=== PATIENT | female | born 1950 | race African-American/Black ===

== ENCOUNTER 2024-07-13 22:13 | Outpatient (BNV) | payer MEDICARE, BC, OTHER, SELFPAY | END 2024-07-15 16:00 | PROVIDERS: Admitting Provider Psychiatry & Neurology Psychiatry; Visit Provider Radiology Diagnostic Radiology | DX: F25.1 Schizoaffective disorder, depressive type (principal) | CPT/HCPCS: 70450 ==

== ENCOUNTER 2024-07-13 22:13 | Inpatient (IN) | payer MEDICARE, BC, OTHER, SELFPAY ==
--- NOTE | ~2024-07-13 | CT_ITS ---
EXAMINATION: CT HEAD WITHOUT CONTRAST CLINICAL INFORMATION: memory impairment COMPARISON: None available. TECHNIQUE: Contiguous axial imaging was performed from the skull base to vertex without intravenous administration of contrast. This CT examination was performed using dose optimization techniques as appropriate, variously including the following: *Automated exposure control *Adjustment of mA and/or kV according to patient size (this includes techniques or standardized protocols for targeted exams where dose is matched to indication/reason for exam; i.e. extremities or head) *Use of iterative reconstruction technique DLP: 655 mGy-cm FINDINGS: Bony calvarium is intact. Skull base is intact. No acute intracranial hemorrhage, mass effect, midline shift, hydrocephalus or herniation. Sellar/suprasellar region demonstrated no gross masses. Bilateral multifocal patchy and confluent deep periventricular white matter hypodensities involving centrum semiovale and larry radiata. Prominence of the extra-axial CSF spaces cerebral sulci and ventricles. Posterior cranial fossa contents demonstrated no acute intracranial hemorrhage or mass effect. Mucosal thickening without air-fluid levels in the paranasal sinuses. Tympanic cavities and mastoid air cells are aerated. Pneumatized petrous apices, congenital. CT/CT head/brain wo IV con IMPRESSION: Small vessel occlusive disease. Superimposed acute stroke/nonhemorrhagic ischemia cannot be excluded. No acute intracranial hemorrhage. Electronically signed by: Rajesh Cheney MD 07/18/2024 07:16 AM AMBER
[2024-07-13 22:51] VITALS: BMI 24.8
[2024-07-13 23:24] VITALS: BP 164/70; PULSE 62; RESP 16; TEMP 36.8; O2SAT 97
[2024-07-13 23:33] LABS: Glucose, Whole Blood 125 mg/dL (60-115)
[2024-07-13 23:40] VITALS: BP 164/70; PULSE 62
[2024-07-13] MEDS: Metoprolol Tartrate 100 MG TABLET PO (23:40)
[2024-07-13] MEDS: Pravastatin Sodium 20 MG TABLET PO (23:41)
--- NOTE | 2024-07-14 01:05 | PC.NURSE ---
Admission Note Gardenia Thibodeaux, 74 years old woman was presented to [facility] ED for auditory hallucination, hearing her children's voices. The patient lived by herself. The patient has a medical and psychiatric history of Hypertension, Hyperlipidemia, CAD, Diabetes (125 @ 2329), and Schizoaffetic Disorder, depressive type. Gardenia arrived at our unit in a stretcher at 2245 on 07/12/24, CV, with an admitting diagnosis of Sizhoaffective depressive type. The patient is alert and oriented x 4,? calm, pleasant, compliant with the admission process.? Denied SI/HI/vH, Denied depression and anxiety, continues to endorse AH but non commanding, ambulates with walker,? no visible skin issues observed,? Meds rec completed/compliant with meds/takes meds whole, reported her elimination intact. With occasional bladder incontinence. Lab work is unremarkable, EKG sinus rhythm with premature atrial complexes, Covid & influenza negative,? UA negative, treatment plan/safety tool/ release paper signed/filed, unit orientation completed, counterbrand searched, patient contracted for the safety, patient is being observed on 5 minutes safety check as ordered. The patient is full code.?
[2024-07-14] MEDS: Omeprazole 40 MG CAPSULE.DR PO (05:40)
[2024-07-14 07:00] VITALS: BMI 26.1
[2024-07-14 08:00] VITALS: BP 181/79; PULSE 60; RESP 18; TEMP 36; O2SAT 98
[2024-07-14 08:21] LABS: Estimated Average Glucose 108 mg/dL; Hemoglobin A1C 110.1456 umol/L; Hemoglobin A1c % 5.4 % (<6.0); Total Hemoglobin (HGBA1C) 3140.2107 umol/L
[2024-07-14 08:37] LABS: Cholesterol 143 mg/dL (<200); HDL Cholesterol 67 mg/dL (>40); LDL Cholesterol Calculated 67 mg/dL (<100); Triglycerides 47 mg/dL (<150)
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
[2024-07-14 08:53] LABS: Free T4 (Free Thyroxine) 1.05 ng/dL (0.71-1.85)
[2024-07-14 09:05] LABS: Folate 6.5 ng/mL (> or = 4.0); Vitamin B12 > 2000 pg/mL (200-900)
[2024-07-14] MEDS: Aspirin 81 MG TAB.CHEW PO (09:44)
[2024-07-14] MEDS: buPROPion HCl XL 300 MG TAB.ER.24H PO (09:44)
[2024-07-14] MEDS: Metoprolol Tartrate 100 MG TABLET PO ×2 (10:32→20:31)
[2024-07-14] MEDS: Isosorbide Mononitrate 60 MG TAB.ER.24H PO (10:32)
--- NOTE | 2024-07-14 11:29 | P.CONHOSP_ITS ---
History of Present Illness Data of Consult Service Date: 07/14/24 Primary Care Provider: Unknown Physician HPI Reason for consult: Admission H&P Pt is a 74-year-old female with a PMH significant for HTN, CAD, hx of TIA, GERD, and schizophrenia? who is admitted to [facility] for for increasing auditory and visual hallucinations. Pt reports has been seen and hearing the voices of her children. Pt has a long history of schizophrenia dating back to the age of 23. Medical consult for admission H&P. ?Pt is alert and oriented x4 and seen resting comfortably in bed. Pt complains of continuing to hear voices, but otherwise has no acute medical complaints. Denies fever, chills, nausea, vomiting, abdominal pain. No headache or acute vision changes. Denies chest pain/pressure, palpitations. No shortness a breath or difficulty breathing. Labs from [facility] reviewed, grossly unremarkable. Vitals indicate hypertension of 181/79. Review of Systems Review of Systems: Pt has no acute medical complaints at this time [facility] Medical History (Updated 07/14/24 @ 12:08 by MAYNOR Carney) Schizophrenia Hypertension Hyperlipidemia CAD (coronary artery disease) TIA (transient ischemic attack) Social History Household Members: None Housing: House Do you presently have visiting nurse or other home services: No Patient Tobacco Use Status: Never used Tobacco Smoked in Last 30 Days: No Patient Interested in Nicotine Replacement: No Patient Given Instructions on How to Stop Smoking: No Second Hand Smoke Exposure: No Use of substances other than those prescribed or required for medical reasons: No Currently Displaying Signs/Symptoms of Drug Intoxication Withdrawal: No Have you been hit, kicked, punched, or otherwise hurt by someone within the past year? If so, by whom?: No Do you feel safe in your current relationship?: No Current Relationship Is there a partner from a previous relationship who is making you feel unsafe now?: No Are you made to feel afraid or neglected: No Advance Directives: No Advance Directives Information Provided: No Do you have thoughts of harming others: None Do you have a plan to hurt others: No Plan Recently lost weight without trying: Yes How much weight loss: 14-23 pounds Eating poorly because of decreased appetite: Yes Nutrition screen score: 5 Nutrition Risks: No Nutritional Risk Patient : No : No Poor oral hygiene: No Meds Allergies Allergy/AdvReac Type Severity Reaction Status Date / Time thao Allergy Intermediate Nausea Verified 07/13/24 22:22 fluphenazine Allergy Intermediate Unknown Verified 07/13/24 22:24 losartan Allergy Intermediate Cough Verified 07/13/24 22:25 ondansetron [From Zofran] Allergy Intermediate Unknown Verified 07/13/24 22:26 pear Allergy Intermediate Nausea Verified 07/13/24 22:22 spironolactone Allergy Intermediate Nausea Verified 07/13/24 22:25 apple Allergy Mild Nausea Verified 07/13/24 22:21 haloperidol AdvReac Intermediate Involuntary Verified 07/13/24 22:24 Spasms Active Medications: Current Medications Acetaminophen (Acetaminophen 325 Mg Tablet) 650 mg PO Q6H PRN PRN Reason: Headache/Pain Mild Scale (1-3) Al Hydroxide/Mg Hydroxide (Magnesium Hydrox/Alum Hydrox 30 Ml Oral.Susp) 30 ml PO Q6H PRN PRN Reason: Heartburn/Nausea Aspirin (Aspirin 81 Mg Tab.Chew) 81 mg PO DAILY [facility] Last Admin: 07/14/24 09:44 Dose: 81 mg Bupropion HCl (Bupropion Hcl Xl 300 Mg Tab.Er.24h) 300 mg PO DAILY [facility] Last Admin: 07/14/24 09:44 Dose: 300 mg Hydroxyzine HCl (Hydroxyzine Hcl 25 Mg Tablet) 25 mg PO Q6H PRN PRN Reason: Anxiety Isosorbide Mononitrate (Isosorbide Mononitrate 60 Mg Tab.Er.24h) 60 mg PO DAILY [facility]; Protocol Last Admin: 07/14/24 10:32 Dose: 60 mg Magnesium Hydroxide (Milk Of Magnesia 30 Ml Oral.Susp) 30 ml PO DAILY PRN PRN Reason: Constipation Metoprolol Tartrate (Metoprolol Tartrate 100 Mg Tablet) 100 mg PO BID [facility]; Protocol Last Admin: 07/14/24 10:32 Dose: 100 mg Omeprazole (Omeprazole 40 Mg Capsule.Dr) 40 mg PO DAILY@0630 [facility] Last Admin: 07/14/24 05:40 Dose: 40 mg Pravastatin Sodium (Pravastatin Sodium 20 Mg Tablet) 20 mg PO BEDTIME [facility] Last Admin: 07/13/24 23:41 Dose: 20 mg Trazodone HCl (Trazodone Hcl 50 Mg Tablet) 50 mg PO BEDTIME MRX1 PRN PRN Reason: Insomnia Home Medications ?Medication ?Instructions ?Recorded ?Confirmed ?Last Taken ?Type aspirin 81 mg tablet,delayed 81 mg DAILY 07/13/24 07/13/24 Unknown History release bupropion HCl 300 mg 24 hr tablet, 300 mg PO DAILY 07/13/24 07/13/24 Unknown History extended release isosorbide mononitrate 60 mg 60 mg PO DAILY 07/13/24 07/13/24 Unknown History tablet,extended release 24 hr metoprolol tartrate 100 mg tablet 100 mg BID 07/13/24 07/13/24 Unknown History omeprazole 40 mg capsule,delayed 40 mg PO DAILY 07/13/24 07/13/24 Unknown History release pravastatin 20 mg tablet 20 mg PO BEDTIME 07/13/24 07/13/24 Unknown History Physical Exam Vital Signs and Narrative: Vital Signs: Last Vital Signs Temp 96.8 F 07/14/24 08:00 Pulse 60 07/14/24 08:00 Resp 18 07/14/24 08:00 BP 181/79 H 07/14/24 08:00 Pulse Ox 98 07/14/24 08:00 O2 Del Method Room Air 07/14/24 08:00 BMI result Body Mass Index 24.8 General: AOx3, no acute distress Resp: CTA bilaterally CVS: S1, S2, RRR GI: +BS, NT, no distention Skin: Warm, dry Neuro: Cranial nerves II-XII grossly intact bilaterally. Motor grossly intact bilaterally Extremities: No edema Psych: Appropriate affect Results Labs Labs: Laboratory Results - last 24 hr 07/13/24 07/14/24 23:29 07:17 POC Glucose 125 H Estimat Average Glucose 108 Hemoglobin A1c % 5.4 Magnesium 2.0 Triglycerides 47 Cholesterol 143 LDL Cholesterol, Calc 67 HDL Cholesterol 67 Vitamin B12 > 2000 H Folate 6.5 TSH 1.70 Free T4 1.05 Assessment and Plan (1) Medical clearance for psychiatric admission: Status: Acute Plan Pt is a 74-year-old female with a PMH significant for HTN, CAD, hx of TIA, GERD, and schizophrenia? who is admitted to [facility] for for increasing auditory and visual hallucinations. Pt reports has been seen and hearing the voices of her children. Pt has a long history of schizophrenia dating back to the age of 23. Medical consult for admission H&P. ? Mood disorder Plan as per Psychiatry HTN Poorly controlled patient's BP 181/79 this morning Continue metoprolol Will start on amlodipine 5 mg daily Monitor BP CAD/HLD Continue aspirin, statin, isosorbide mononitrate GERD Continue PPI Thank you for allowing us to participate in the care of this patient. Signing off at this time. Please re-consult if any acute complaints or issues arise.
[2024-07-14] MEDS: amLODIPine Besylate 5 MG TABLET PO (12:45)
[2024-07-14 12:51] VITALS: BP 116/54; PULSE 65; RESP 18; O2SAT 97
[2024-07-14] MEDS: Lurasidone HCl 20 MG TABLET PO (16:16)
[2024-07-14 17:49] LABS: Alanine Aminotransferase 32 U/L (0-31); Albumin Level 3.8 g/dL (3.5-5.0); Alkaline Phosphatase 100 U/L (39-117); Anion Gap 8 (12-20); Aspartate Amino Transferase 24 U/L (5-31); Bilirubin Total 0.3 mg/dL (0.0-1.0); Blood Urea Nitrogen 33 mg/dL (9-16); Calcium 9.3 mg/dL (8.4-10.2); Carbon Dioxide 30 mmol/L (22-29); Chloride 104 mmol/L (96-108); Creatinine Clr Calc Pharmacy 44.4; Estimated Glomerular Filt Rate 51; Glucose Random 147 mg/dL (60-115); Iron 43 mcg/dL (30-160); Percent Iron Saturation 16 % (15-50); Potassium 4.3 mmol/L (3.3-5.1); Sodium 138 mmol/L (135-145); Total Iron Binding Capacity 261 mcg/dL (228-428); Total Protein 6.3 g/dL (6.5-8.0); Unsaturated Iron Binding 218 ug/dL
[2024-07-14 20:00] VITALS: BP 172/71; PULSE 73; RESP 16; TEMP 36.3; O2SAT 99
[2024-07-14 20:31] VITALS: BP 172/71; PULSE 73
[2024-07-14] MEDS: traZODone HCL 50 MG TABLET PO (20:32)
[2024-07-14] MEDS: Pravastatin Sodium 20 MG TABLET PO (20:32)
[2024-07-15] MEDS: Omeprazole 40 MG CAPSULE.DR PO (06:40)
[2024-07-15 08:00] VITALS: BP 150/67; PULSE 63; RESP 18; TEMP 36.3; O2SAT 100
[2024-07-15] MEDS: Aspirin 81 MG TAB.CHEW PO (09:08)
[2024-07-15] MEDS: Isosorbide Mononitrate 60 MG TAB.ER.24H PO (09:08)
[2024-07-15] MEDS: amLODIPine Besylate 5 MG TABLET PO (09:08)
[2024-07-15] MEDS: Metoprolol Tartrate 100 MG TABLET PO ×2 (09:09→20:37)
[2024-07-15] MEDS: buPROPion HCl XL 150 MG TAB.ER.24H PO (09:09)
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
[2024-07-15] MEDS: Lurasidone HCl 20 MG TABLET PO (17:13)
[2024-07-15 20:00] VITALS: BP 186/77; PULSE 73; RESP 16; TEMP 37.1; O2SAT 100
[2024-07-15 20:37] VITALS: BP 182/77; PULSE 73
[2024-07-15] MEDS: Pravastatin Sodium 20 MG TABLET PO (20:37)
[2024-07-16] MEDS: Omeprazole 40 MG CAPSULE.DR PO (06:12)
[2024-07-16 08:00] VITALS: BP 165/72; PULSE 60; RESP 18; TEMP 36.2; O2SAT 98
[2024-07-16 08:36] VITALS: BP 165/72; PULSE 60
[2024-07-16] MEDS: Isosorbide Mononitrate 60 MG TAB.ER.24H PO (08:36)
[2024-07-16] MEDS: amLODIPine Besylate 5 MG TABLET PO ×2 (08:36→15:02)
[2024-07-16] MEDS: Metoprolol Tartrate 100 MG TABLET PO ×2 (08:36→20:26)
[2024-07-16] MEDS: Aspirin 81 MG TAB.CHEW PO (08:37)
[2024-07-16] MEDS: buPROPion HCl XL 150 MG TAB.ER.24H PO (08:37)
--- NOTE | 2024-07-16 13:43 | HO.PSYCHPN ---
Subjective Subjective Date of Service: 07/16/24 Reason For Visit: F25.1 Schizoaffective Disorder, Depressive Type Subjective Notes: Conditional Voluntary Interim History: Pt slept most of the night. Pt confused as to what she is doing here, although reports she likes it here. Her reports of visual or auditory hallucinations are vagued and at times contradictory. She is pleasant on approach. She asks if I have been able to reach her son, which I have not despite leaving with call back number. No behavioral concerns. pending cognitive/memory assessment. Review of Systems Review of Systems Pt denies any pain. No GI concerns.No SOB. No chest pain. Mental Status Exam Mental Status Exam Narrative: Appearance: wearing hospital gown, fair hygiene, in NAD Behavior: cooperative, interview limited by fact that she was somnolent and wanted to rest Psychomotor: no agitation or retardation noted Speech: clear, normal rate/rhythm/volume, spontaneous TP: linear TC: wanting to rest, open to tx. Mood: tired Affect: congruent SI: none HI: none VH/AH: intermittent auditory hallucinations of children, denies CAH Delusions: no overt delusional content noted or reported Insight/judgment: poor x 2. Memory/cog: alert, oriented to place, situation, month, year. Reports of increase forgetfulness. WIll complete MOCA Diagnostics Vital Signs (24Hr): Vital Signs - 24 hr 07/15/24 20:00 07/15/24 20:37 07/16/24 08:00 Temperature 98.8 F 97.2 F Pulse Rate 73 73 60 Respiratory Rate 16 18 Blood Pressure 186/77 H 182/77 H 165/72 H Pulse Oximetry 100 98 Oxygen Delivery Method Room Air Room Air 07/16/24 08:36 07/16/24 08:36 07/16/24 08:36 Temperature Pulse Rate 60 Respiratory Rate Blood Pressure 165/72 H 165/72 H 165/72 H Pulse Oximetry Oxygen Delivery Method BMI result Body Mass Index 26.1 Labs 07/14/24 17:29 Labs: Laboratory Results - last 48 hr 07/14/24 17:29 Sodium 138 Potassium 4.3 Chloride 104 Carbon Dioxide 30 H Anion Gap 8 L BUN 33 H Creatinine 1.06 Estim Creat Clear Calc 44.4 Estimated GFR 51 Random Glucose 147 H Calcium 9.3 Iron 43 TIBC 261 % Saturation 16 Unsat Iron Binding 218 Total Bilirubin 0.3 AST 24 ALT 32 H Alkaline Phosphatase 100 Total Protein 6.3 L Albumin 3.8 Medications Medications Current Medications Acetaminophen (Acetaminophen 325 Mg Tablet) 650 mg PO Q6H PRN PRN Reason: Headache/Pain Mild Scale (1-3) Al Hydroxide/Mg Hydroxide (Magnesium Hydrox/Alum Hydrox 30 Ml Oral.Susp) 30 ml PO Q6H PRN PRN Reason: Heartburn/Nausea Amlodipine Besylate (Amlodipine Besylate 5 Mg Tablet) 5 mg PO DAILY [facility]; Protocol Last Admin: 07/16/24 08:36 Dose: 5 mg Aspirin (Aspirin 81 Mg Tab.Chew) 81 mg PO DAILY [facility] Last Admin: 07/16/24 08:37 Dose: 81 mg Bupropion HCl (Bupropion Hcl Xl 150 Mg Tab.Er.24h) 150 mg PO DAILY [facility] Last Admin: 07/16/24 08:37 Dose: 150 mg Hydroxyzine HCl (Hydroxyzine Hcl 25 Mg Tablet) 25 mg PO Q6H PRN PRN Reason: Anxiety Isosorbide Mononitrate (Isosorbide Mononitrate 60 Mg Tab.Er.24h) 60 mg PO DAILY [facility]; Protocol Last Admin: 07/16/24 08:36 Dose: 60 mg Lurasidone HCl (Lurasidone Hcl 20 Mg Tablet) 20 mg PO DAILY@1700 [facility] Last Admin: 07/15/24 17:13 Dose: 20 mg Magnesium Hydroxide (Milk Of Magnesia 30 Ml Oral.Susp) 30 ml PO DAILY PRN PRN Reason: Constipation Metoprolol Tartrate (Metoprolol Tartrate 100 Mg Tablet) 100 mg PO BID [facility]; Protocol Last Admin: 07/16/24 08:36 Dose: 100 mg Omeprazole (Omeprazole 40 Mg Capsule.Dr) 40 mg PO DAILY@0630 [facility] Last Admin: 07/16/24 06:12 Dose: 40 mg Pravastatin Sodium (Pravastatin Sodium 20 Mg Tablet) 20 mg PO BEDTIME [facility] Last Admin: 07/15/24 20:37 Dose: 20 mg Trazodone HCl (Trazodone Hcl 50 Mg Tablet) 50 mg PO BEDTIME MRX1 PRN PRN Reason: Insomnia Last Admin: 07/14/24 20:32 Dose: 50 mg Allergies Allergies Allergy/AdvReac Type Severity Reaction Status Date / Time thao Allergy Intermediate Nausea Verified 07/13/24 22:22 fluphenazine Allergy Intermediate Unknown Verified 07/13/24 22:24 losartan Allergy Intermediate Cough Verified 07/13/24 22:25 ondansetron [From Zofran] Allergy Intermediate Unknown Verified 07/13/24 22:26 pear Allergy Intermediate Nausea Verified 07/13/24 22:22 spironolactone Allergy Intermediate Nausea Verified 07/13/24 22:25 apple Allergy Mild Nausea Verified 07/13/24 22:21 haloperidol AdvReac Intermediate Involuntary Verified 07/13/24 22:24 Spasms Assessment & Plan Assessment & Plan (1) Schizophrenia: Status: Acute Code(s): F20.9 - Schizophrenia, unspecified Plan Mrs. Thibodeaux is a 74 year-old woman with hx of schizophrenia. She also has hx of significant trauma. She was sect from her OP provider (unclear of psych or PCP) as pt reported AH of children, no SI/HI. In the ED concern in terms of her ability to care for herself, increase forgetfulness, pt was not aware what medications she is supposed to be taking and pharmacy confirmed she had not filled psychotropic medications since November 2023. Son had reported to ED concern in terms of ability to care for herself. This literary writer called son, Phani but unable to reach him. Will continue to attempt communication with son. Pending collateral information from OP provider as well. We discussed risks, benefits and alternative treatment options, will restart latuda 20mg po daily with dinner- will titrate as needed. Will complete memory/cognitive assessment. If head image not completed recently, will obtain head CT. Hospitalist did start amlodipine for elevated SBP. Will order iron studies, due to microcytic anemia. will do CMP as we do not have LFTs and BUN was elevated at 38. PLAN 07/16 continue tx. pending MOCA/ACL. Reason for continued inpatient stay Substantial Risk for: inability to function Time Spent With Patient Time: Total time managing care of this patient today ____ minutes.
[2024-07-16 15:02] VITALS: BP 144/71
[2024-07-16] MEDS: Lurasidone HCl 20 MG TABLET PO (16:48)
[2024-07-16 20:00] VITALS: BP 183/74; PULSE 74; RESP 18; TEMP 36.8; O2SAT 99
[2024-07-16 20:26] VITALS: BP 185/74; PULSE 74
[2024-07-16] MEDS: traZODone HCL 50 MG TABLET PO (20:27)
[2024-07-16] MEDS: Pravastatin Sodium 20 MG TABLET PO (20:27)
[2024-07-17] MEDS: Omeprazole 40 MG CAPSULE.DR PO (06:13)
[2024-07-17 08:16] VITALS: BP 151/72; PULSE 61; RESP 18; TEMP 36.6; O2SAT 98
[2024-07-17] MEDS: Aspirin 81 MG TAB.CHEW PO (09:59)
[2024-07-17] MEDS: buPROPion HCl XL 150 MG TAB.ER.24H PO (09:59)
[2024-07-17 10:00] VITALS: BP 148/65; BP 148/69; PULSE 85
[2024-07-17] MEDS: amLODIPine Besylate 10 MG TABLET PO (10:00)
[2024-07-17] MEDS: Metoprolol Tartrate 100 MG TABLET PO ×2 (10:00→20:36)
[2024-07-17] MEDS: Isosorbide Mononitrate 60 MG TAB.ER.24H PO (10:00)
--- NOTE | 2024-07-17 12:23 | HO.PSYCHPN ---
Subjective Subjective Date of Service: 07/17/24 Reason For Visit: F25.1 Schizoaffective Disorder, Depressive Type Subjective Notes: Conditional Voluntary Interim History: Pt slept most of the night. Pt confused as to what she is doing here, although reports she likes it here. Her reports of visual or auditory hallucinations are vagued and at times contradictory. She is pleasant on approach. She asks if I have been able to reach her son, which I have not despite leaving with call back number. No behavioral concerns. pending cognitive/memory assessment. Review of Systems Review of Systems Pt denies any pain. No GI concerns.No SOB. No chest pain. Mental Status Exam Mental Status Exam Narrative: Appearance: wearing hospital gown, fair hygiene, in NAD Behavior: cooperative, interview limited by fact that she was somnolent and wanted to rest Psychomotor: no agitation or retardation noted Speech: clear, normal rate/rhythm/volume, spontaneous TP: linear TC: wanting to rest, open to tx. Mood: tired Affect: congruent SI: none HI: none VH/AH: intermittent auditory hallucinations of children, denies CAH Delusions: no overt delusional content noted or reported Insight/judgment: poor x 2. Memory/cog: alert, oriented to place, situation, month, year. Reports of increase forgetfulness. WIll complete MOCA Diagnostics Vital Signs (24Hr): Vital Signs - 24 hr 07/16/24 15:02 07/16/24 20:00 07/16/24 20:26 Temperature 98.2 F Pulse Rate 74 74 Respiratory Rate 18 Blood Pressure 144/71 H 183/74 H 185/74 H Pulse Oximetry 99 Oxygen Delivery Method Room Air 07/17/24 08:16 07/17/24 10:00 07/17/24 10:00 Temperature 97.9 F Pulse Rate 61 85 Respiratory Rate 18 Blood Pressure 151/72 H 148/69 H 148/69 H Pulse Oximetry 98 Oxygen Delivery Method Room Air 07/17/24 10:00 Temperature Pulse Rate Respiratory Rate Blood Pressure 148/65 H Pulse Oximetry Oxygen Delivery Method BMI result Body Mass Index 26.1 Labs 07/14/24 17:29 Medications Medications Current Medications Acetaminophen (Acetaminophen 325 Mg Tablet) 650 mg PO Q6H PRN PRN Reason: Headache/Pain Mild Scale (1-3) Al Hydroxide/Mg Hydroxide (Magnesium Hydrox/Alum Hydrox 30 Ml Oral.Susp) 30 ml PO Q6H PRN PRN Reason: Heartburn/Nausea Amlodipine Besylate (Amlodipine Besylate 10 Mg Tablet) 10 mg PO DAILY [facility]; Protocol Last Admin: 07/17/24 10:00 Dose: 10 mg Aspirin (Aspirin 81 Mg Tab.Chew) 81 mg PO DAILY [facility] Last Admin: 07/17/24 09:59 Dose: 81 mg Bupropion HCl (Bupropion Hcl Xl 150 Mg Tab.Er.24h) 150 mg PO DAILY [facility] Last Admin: 07/17/24 09:59 Dose: 150 mg Hydroxyzine HCl (Hydroxyzine Hcl 25 Mg Tablet) 25 mg PO Q6H PRN PRN Reason: Anxiety Isosorbide Mononitrate (Isosorbide Mononitrate 60 Mg Tab.Er.24h) 60 mg PO DAILY [facility]; Protocol Last Admin: 07/17/24 10:00 Dose: 60 mg Lurasidone HCl (Lurasidone Hcl 40 Mg Tablet) 40 mg PO DAILY@1700 [facility] Magnesium Hydroxide (Milk Of Magnesia 30 Ml Oral.Susp) 30 ml PO DAILY PRN PRN Reason: Constipation Metoprolol Tartrate (Metoprolol Tartrate 100 Mg Tablet) 100 mg PO BID [facility]; Protocol Last Admin: 07/17/24 10:00 Dose: 100 mg Omeprazole (Omeprazole 40 Mg Capsule.Dr) 40 mg PO DAILY@0630 [facility] Last Admin: 07/17/24 06:13 Dose: 40 mg Pravastatin Sodium (Pravastatin Sodium 20 Mg Tablet) 20 mg PO BEDTIME [facility] Last Admin: 07/16/24 20:27 Dose: 20 mg Trazodone HCl (Trazodone Hcl 50 Mg Tablet) 50 mg PO BEDTIME MRX1 PRN PRN Reason: Insomnia Last Admin: 07/16/24 20:27 Dose: 50 mg Allergies Allergies Allergy/AdvReac Type Severity Reaction Status Date / Time thao Allergy Intermediate Nausea Verified 07/13/24 22:22 fluphenazine Allergy Intermediate Unknown Verified 07/13/24 22:24 losartan Allergy Intermediate Cough Verified 07/13/24 22:25 ondansetron [From Zofran] Allergy Intermediate Unknown Verified 07/13/24 22:26 pear Allergy Intermediate Nausea Verified 07/13/24 22:22 spironolactone Allergy Intermediate Nausea Verified 07/13/24 22:25 apple Allergy Mild Nausea Verified 07/13/24 22:21 haloperidol AdvReac Intermediate Involuntary Verified 07/13/24 22:24 Spasms Assessment & Plan Assessment & Plan (1) Schizophrenia: Status: Acute Code(s): F20.9 - Schizophrenia, unspecified Plan Mrs. Thibodeaux is a 74 year-old woman with hx of schizophrenia. She also has hx of significant trauma. She was sect from her OP provider (unclear of psych or PCP) as pt reported AH of children, no SI/HI. In the ED concern in terms of her ability to care for herself, increase forgetfulness, pt was not aware what medications she is supposed to be taking and pharmacy confirmed she had not filled psychotropic medications since November 2023. Son had reported to ED concern in terms of ability to care for herself. This greeting card writer called son, Phani but unable to reach him. Will continue to attempt communication with son. Pending collateral information from OP provider as well. We discussed risks, benefits and alternative treatment options, will restart latuda 20mg po daily with dinner- will titrate as needed. Will complete memory/cognitive assessment. If head image not completed recently, will obtain head CT. Hospitalist did start amlodipine for elevated SBP. Will order iron studies, due to microcytic anemia. will do CMP as we do not have LFTs and BUN was elevated at 38. PLAN 07/17 continue tx. pending MOCA/ACL. increase latuda to 40mg po dinner. Reason for continued inpatient stay Substantial Risk for: inability to function Time Spent With Patient Time: Total time managing care of this patient today ____ minutes.
[2024-07-17] MEDS: Lurasidone HCl 40 MG TABLET PO (17:08)
[2024-07-17 20:00] VITALS: BP 131/62; PULSE 76; RESP 18; TEMP 36.4; O2SAT 100
[2024-07-17] MEDS: traZODone HCL 50 MG TABLET PO (20:37)
[2024-07-17] MEDS: Pravastatin Sodium 20 MG TABLET PO (20:37)
[2024-07-18] MEDS: Omeprazole 40 MG CAPSULE.DR PO (05:54)
[2024-07-18 08:00] VITALS: BP 180/85; PULSE 70; RESP 18; TEMP 36.8; O2SAT 100
[2024-07-18] MEDS: amLODIPine Besylate 10 MG TABLET PO (08:06)
[2024-07-18] MEDS: Metoprolol Tartrate 100 MG TABLET PO ×2 (08:06→20:11)
[2024-07-18] MEDS: Isosorbide Mononitrate 60 MG TAB.ER.24H PO (08:06)
[2024-07-18] MEDS: buPROPion HCl XL 150 MG TAB.ER.24H PO (08:06)
[2024-07-18] MEDS: Aspirin 81 MG TAB.CHEW PO (08:06)
[2024-07-18] MEDS: Lurasidone HCl 40 MG TABLET PO (16:20)
--- NOTE | 2024-07-18 16:47 | HO.PSYCHPN ---
Subjective Subjective Date of Service: 07/18/24 Reason For Visit: F25.1 Schizoaffective Disorder, Depressive Type Interim History: Met with patient; discussed with team Patient pleasant and friendly on approach. She denies any SI and asks when she will be able to go home; accepts this will be discussed with her primary team provider. Discussed auditory and visual hallucinations. Patient says that sometimes she will hear a noise she thinks probably is happening such as a baby crying or banging sound; she says it can be hard to distinguish what is real verse imaginary. She reports that she will also see visual hallucinations including seeing her son, daughter or sibling in the room. Patient shared that she has a trick for distinguishing if it is real or not. What she does is she locks the door and if they appear in the room, she knows it is a hallucination since they otherwise could not get in there. Mental Status Exam Mental Status Exam Narrative: Appearance: wearing hospital gown, fair hygiene, in NAD Behavior: cooperative, friendly, calm Psychomotor: no agitation or retardation noted Speech: clear, normal rate/rhythm/volume, spontaneous TP: linear TC: discharge Mood: good Affect: congruent SI: none HI: none VH/AH: intermittent auditory hallucinations; intermittent VH of children, denies CAH Delusions: no overt delusional content noted or reported Insight/judgment: some impairment Memory/cog: alert and oriented moca: Diagnostics Vital Signs (24Hr): Vital Signs - 24 hr 07/17/24 20:00 07/18/24 08:00 Temperature 97.6 F 98.2 F Pulse Rate 76 70 Respiratory Rate 18 18 Blood Pressure 131/62 180/85 H Pulse Oximetry 100 100 Oxygen Delivery Method Room Air Room Air BMI result Body Mass Index 26.1 Labs 07/14/24 17:29 Imaging Radiology Impressions: ITS Impressions Head CT 07/15/24 16:00 IMPRESSION: Small vessel occlusive disease. Superimposed acute stroke/nonhemorrhagic ischemia cannot be excluded. No acute intracranial hemorrhage. Electronically signed by: Rajesh Cheney MD 07/18/2024 07:16 AM [facility] [place] Medications Medications Current Medications Acetaminophen (Acetaminophen 325 Mg Tablet) 650 mg PO Q6H PRN PRN Reason: Headache/Pain Mild Scale (1-3) Al Hydroxide/Mg Hydroxide (Magnesium Hydrox/Alum Hydrox 30 Ml Oral.Susp) 30 ml PO Q6H PRN PRN Reason: Heartburn/Nausea Amlodipine Besylate (Amlodipine Besylate 10 Mg Tablet) 10 mg PO DAILY [facility]; Protocol Last Admin: 07/18/24 08:06 Dose: 10 mg Aspirin (Aspirin 81 Mg Tab.Chew) 81 mg PO DAILY [facility] Last Admin: 07/18/24 08:06 Dose: 81 mg Bupropion HCl (Bupropion Hcl Xl 150 Mg Tab.Er.24h) 150 mg PO DAILY [facility] Last Admin: 07/18/24 08:06 Dose: 150 mg Hydroxyzine HCl (Hydroxyzine Hcl 25 Mg Tablet) 25 mg PO Q6H PRN PRN Reason: Anxiety Isosorbide Mononitrate (Isosorbide Mononitrate 60 Mg Tab.Er.24h) 60 mg PO DAILY [facility]; Protocol Last Admin: 07/18/24 08:06 Dose: 60 mg Lurasidone HCl (Lurasidone Hcl 40 Mg Tablet) 40 mg PO DAILY@1700 [facility] Last Admin: 07/18/24 16:20 Dose: 40 mg Magnesium Hydroxide (Milk Of Magnesia 30 Ml Oral.Susp) 30 ml PO DAILY PRN PRN Reason: Constipation Metoprolol Tartrate (Metoprolol Tartrate 100 Mg Tablet) 100 mg PO BID [facility]; Protocol Last Admin: 07/18/24 08:06 Dose: 100 mg Omeprazole (Omeprazole 40 Mg Capsule.Dr) 40 mg PO DAILY@0630 [facility] Last Admin: 07/18/24 05:54 Dose: 40 mg Pravastatin Sodium (Pravastatin Sodium 20 Mg Tablet) 20 mg PO BEDTIME [facility] Last Admin: 07/17/24 20:37 Dose: 20 mg Trazodone HCl (Trazodone Hcl 50 Mg Tablet) 50 mg PO BEDTIME MRX1 PRN PRN Reason: Insomnia Last Admin: 07/17/24 20:37 Dose: 50 mg Allergies Allergies Allergy/AdvReac Type Severity Reaction Status Date / Time thao Allergy Intermediate Nausea Verified 07/13/24 22:22 fluphenazine Allergy Intermediate Unknown Verified 07/13/24 22:24 losartan Allergy Intermediate Cough Verified 07/13/24 22:25 ondansetron [From Zofran] Allergy Intermediate Unknown Verified 07/13/24 22:26 pear Allergy Intermediate Nausea Verified 01/08/25 22:22 spironolactone Allergy Intermediate Nausea Verified 07/13/24 22:25 apple Allergy Mild Nausea Verified 07/13/24 22:21 haloperidol AdvReac Intermediate Involuntary Verified 07/13/24 22:24 Spasms Assessment & Plan Assessment & Plan (1) Schizophrenia: Status: Acute Code(s): F20.9 - Schizophrenia, unspecified Plan Mrs. Thibodeaux is a 74 year-old woman with hx of schizophrenia. She also has hx of significant trauma. She was sect from her OP provider (unclear of psych or PCP) as pt reported AH of children, no SI/HI. In the ED concern in terms of her ability to care for herself, increase forgetfulness, pt was not aware what medications she is supposed to be taking and pharmacy confirmed she had not filled psychotropic medications since November 2023. Son had reported to ED concern in terms of ability to care for herself. This credit underwriter called son, Phani but unable to reach him. Will continue to attempt communication with son. Pending collateral information from OP provider as well. We discussed risks, benefits and alternative treatment options, will restart latuda 20mg po daily with dinner- will titrate as needed. Will complete memory/cognitive assessment. If head image not completed recently, will obtain head CT. Hospitalist did start amlodipine for elevated SBP. Will order iron studies, due to microcytic anemia. will do CMP as we do not have LFTs and BUN was elevated at 38. PLAN 07/17 continue tx. pending MOCA/ACL. increase latuda to 40mg po dinner. 07/18 Patient pleasant and friendly on approach. She denies any SI and asks when she will be able to go home; accepts this will be discussed with her primary team provider. Discussed auditory and visual hallucinations. Patient says that sometimes she will hear a noise she thinks probably is happening such as a baby crying or banging sound; she says it can be hard to distinguish what is real verse imaginary. She reports that she will also see visual hallucinations including seeing her son, daughter or sibling in the room. Patient shared that she has a trick for distinguishing if it is real or not. What she does is she locks the door and if they appear in the room, she knows it is a hallucination since they otherwise could not get in there. -moca: -BP elevated; seems that Wellbutrin was recently started which could be contributory. Will hold Wellbutrin for now Patient educated on: diagnosis and medication risk/benefits Informed Consent: understands and further education needed Reason for continued inpatient stay Substantial Risk for: rapid decompensation Time Spent With Patient Time: Total time managing care of this patient today ____ minutes.
[2024-07-18 20:00] VITALS: BP 168/71; PULSE 77; RESP 18; TEMP 36.7; O2SAT 99
[2024-07-18] MEDS: traZODone HCL 50 MG TABLET PO (20:11)
[2024-07-18] MEDS: Pravastatin Sodium 20 MG TABLET PO (20:11)
[2024-07-19] MEDS: Omeprazole 40 MG CAPSULE.DR PO (05:29)
[2024-07-19 08:00] VITALS: BP 161/70; PULSE 60; RESP 18; TEMP 36.8; O2SAT 99
[2024-07-19 08:21] VITALS: BP 161/70; PULSE 60
[2024-07-19] MEDS: Aspirin 81 MG TAB.CHEW PO (08:21)
[2024-07-19] MEDS: Isosorbide Mononitrate 60 MG TAB.ER.24H PO (08:21)
[2024-07-19] MEDS: Metoprolol Tartrate 100 MG TABLET PO ×2 (08:21→20:42)
[2024-07-19 08:22] VITALS: BP 161/70
[2024-07-19] MEDS: amLODIPine Besylate 10 MG TABLET PO (08:22)
--- NOTE | 2024-07-19 09:39 | HO.PSYCHPN ---
Subjective Subjective Date of Service: 07/19/24 Reason For Visit: F25.1 Schizoaffective Disorder, Depressive Type Subjective Notes: Conditional Voluntary Interim History: Pt reports she is sleeping well. She goes to some groups and for meals but does stay in bed for long periods of times. She reports feeling tired, however, she is not on medications that are sedating. She is also sleeping through the night. No signs of acute illness. SBP continues to be high 170's despite medication adjustments including addition of amlodipine. Medication Compliance: Yes Side effects from medications: No Attending Groups: Intermittent Review of Systems Review of Systems Pt denies any pain. No GI concerns.No SOB. No chest pain. Mental Status Exam Mental Status Exam Narrative: Appearance: wearing hospital gown, fair hygiene, in NAD Behavior: cooperative, friendly, calm Psychomotor: no agitation or retardation noted Speech: clear, normal rate/rhythm/volume, spontaneous TP: linear TC: discharge Mood: good Affect: congruent SI: none HI: none VH/AH: intermittent auditory hallucinations; intermittent VH of children, denies CAH Delusions: no overt delusional content noted or reported Insight/judgment: some impairment Memory/cog: alert, oriented to place, month, situation is vague. ACL 4.2, moca: . Diagnostics Vital Signs (24Hr): Vital Signs - 24 hr 07/18/24 20:00 07/19/24 08:00 07/19/24 08:21 Temperature 98.1 F 98.2 F Pulse Rate 77 60 60 Respiratory Rate 18 18 Blood Pressure 168/71 H 161/70 H 161/70 H Pulse Oximetry 99 99 Oxygen Delivery Method Room Air Room Air 07/19/24 08:21 07/19/24 08:22 Temperature Pulse Rate Respiratory Rate Blood Pressure 161/70 H 161/70 H Pulse Oximetry Oxygen Delivery Method BMI result Body Mass Index 26.1 Labs 07/14/24 17:29 Imaging Radiology Impressions: ITS Impressions Head CT 07/15/24 16:00 IMPRESSION: Small vessel occlusive disease. Superimposed acute stroke/nonhemorrhagic ischemia cannot be excluded. No acute intracranial hemorrhage. Electronically signed by: Rajesh Cheney MD 07/18/2024 07:16 AM [facility] Medications Medications Current Medications Acetaminophen (Acetaminophen 325 Mg Tablet) 650 mg PO Q6H PRN PRN Reason: Headache/Pain Mild Scale (1-3) Al Hydroxide/Mg Hydroxide (Magnesium Hydrox/Alum Hydrox 30 Ml Oral.Susp) 30 ml PO Q6H PRN PRN Reason: Heartburn/Nausea Amlodipine Besylate (Amlodipine Besylate 10 Mg Tablet) 10 mg PO DAILY [facility]; Protocol Last Admin: 07/19/24 08:22 Dose: 10 mg Aspirin (Aspirin 81 Mg Tab.Chew) 81 mg PO DAILY [facility] Last Admin: 07/19/24 08:21 Dose: 81 mg Bupropion HCl (Bupropion Hcl Xl 150 Mg Tab.Er.24h) 150 mg PO DAILY [facility] Last Admin: 07/18/24 08:06 Dose: 150 mg Hydroxyzine HCl (Hydroxyzine Hcl 25 Mg Tablet) 25 mg PO Q6H PRN PRN Reason: Anxiety Isosorbide Mononitrate (Isosorbide Mononitrate 60 Mg Tab.Er.24h) 60 mg PO DAILY [facility]; Protocol Last Admin: 07/19/24 08:21 Dose: 60 mg Lurasidone HCl (Lurasidone Hcl 40 Mg Tablet) 40 mg PO DAILY@1700 [facility] Last Admin: 07/18/24 16:20 Dose: 40 mg Magnesium Hydroxide (Milk Of Magnesia 30 Ml Oral.Susp) 30 ml PO DAILY PRN PRN Reason: Constipation Metoprolol Tartrate (Metoprolol Tartrate 100 Mg Tablet) 100 mg PO BID [facility]; Protocol Last Admin: 07/19/24 08:21 Dose: 100 mg Omeprazole (Omeprazole 40 Mg Capsule.Dr) 40 mg PO DAILY@0630 [facility] Last Admin: 07/19/24 05:29 Dose: 40 mg Pravastatin Sodium (Pravastatin Sodium 20 Mg Tablet) 20 mg PO BEDTIME [facility] Last Admin: 07/18/24 20:11 Dose: 20 mg Trazodone HCl (Trazodone Hcl 50 Mg Tablet) 50 mg PO BEDTIME MRX1 PRN PRN Reason: Insomnia Last Admin: 07/18/24 20:11 Dose: 50 mg Allergies Allergies Allergy/AdvReac Type Severity Reaction Status Date / Time thao Allergy Intermediate Nausea Verified 07/13/24 22:22 fluphenazine Allergy Intermediate Unknown Verified 07/13/24 22:24 losartan Allergy Intermediate Cough Verified 07/13/24 22:25 ondansetron [From Zofran] Allergy Intermediate Unknown Verified 07/13/24 22:26 pear Allergy Intermediate Nausea Verified 07/13/24 22:22 spironolactone Allergy Intermediate Nausea Verified 07/13/24 22:25 apple Allergy Mild Nausea Verified 07/13/24 22:21 haloperidol AdvReac Intermediate Involuntary Verified 07/13/24 22:24 Spasms Assessment & Plan Assessment & Plan (1) Schizophrenia: Status: Acute Code(s): F20.9 - Schizophrenia, unspecified Plan Mrs. Thibodeaux is a 74 year-old woman with hx of schizophrenia. She also has hx of significant trauma. She was sect from her OP provider (unclear of psych or PCP) as pt reported AH of children, no SI/HI. In the ED concern in terms of her ability to care for herself, increase forgetfulness, pt was not aware what medications she is supposed to be taking and pharmacy confirmed she had not filled psychotropic medications since November 2023. Son had reported to ED concern in terms of ability to care for herself. This speech writer called son, Phani but unable to reach him. Will continue to attempt communication with son. Pending collateral information from OP provider as well. We discussed risks, benefits and alternative treatment options, will restart latuda 20mg po daily with dinner- will titrate as needed. Will complete memory/cognitive assessment. If head image not completed recently, will obtain head CT. Hospitalist did start amlodipine for elevated SBP. Will order iron studies, due to microcytic anemia. will do CMP as we do not have LFTs and BUN was elevated at 38. PLAN 07/17 continue tx. pending MOCA/ACL. increase latuda to 40mg po dinner. 07/19 continue tx. Family meeting with her son on 07/20/23. Reason for continued inpatient stay Substantial Risk for: inability to function Time Spent With Patient Time: Total time managing care of this patient today ____ minutes.
[2024-07-19] MEDS: Acetaminophen 325 MG TABLET 650 MG PO (11:32)
[2024-07-19] MEDS: Lurasidone HCl 40 MG TABLET PO (17:37)
[2024-07-19 20:00] VITALS: BP 158/70; PULSE 74; RESP 16; TEMP 36.9; O2SAT 99
[2024-07-19] MEDS: traZODone HCL 50 MG TABLET PO (20:42)
[2024-07-19] MEDS: Pravastatin Sodium 20 MG TABLET PO (20:42)
[2024-07-20] MEDS: Omeprazole 40 MG CAPSULE.DR PO (06:12)
[2024-07-20 08:00] VITALS: BP 161/76; PULSE 68; RESP 18; TEMP 36.6; O2SAT 100
[2024-07-20] MEDS: Aspirin 81 MG TAB.CHEW PO (08:46)
[2024-07-20] MEDS: Isosorbide Mononitrate 60 MG TAB.ER.24H PO (08:47)
[2024-07-20] MEDS: amLODIPine Besylate 10 MG TABLET PO (08:47)
[2024-07-20] MEDS: Metoprolol Tartrate 100 MG TABLET PO ×2 (08:47→20:37)
[2024-07-20] MEDS: Lurasidone HCl 40 MG TABLET PO (16:11)
[2024-07-20 20:00] VITALS: BP 141/66; PULSE 63; TEMP 36.4; O2SAT 100
[2024-07-20 20:37] VITALS: BP 141/66
[2024-07-20] MEDS: Pravastatin Sodium 20 MG TABLET PO (20:38)
[2024-07-20] MEDS: traZODone HCL 50 MG TABLET PO (20:38)
[2024-07-20] MEDS: Acetaminophen 325 MG TABLET 650 MG PO (20:59)
[2024-07-21] MEDS: Omeprazole 40 MG CAPSULE.DR PO (06:17)
[2024-07-21 08:39] VITALS: BP 170/77; PULSE 64; RESP 16; TEMP 36.5; O2SAT 96
[2024-07-21] MEDS: Isosorbide Mononitrate 60 MG TAB.ER.24H PO (08:45)
[2024-07-21] MEDS: amLODIPine Besylate 10 MG TABLET PO (08:46)
[2024-07-21] MEDS: Aspirin 81 MG TAB.CHEW PO (08:46)
[2024-07-21] MEDS: Metoprolol Tartrate 100 MG TABLET PO ×2 (08:47→20:35)
--- NOTE | 2024-07-21 10:00 | HO.PSYCHPN ---
Subjective Subjective Date of Service: 07/21/24 Reason For Visit: F25.1 Schizoaffective Disorder, Depressive Type Subjective Notes: Conditional Voluntary Interim History: Pt slept through the night. She reports bette voices at times. She is not clear as to what they sound like. She does seem somewhat suspicious of her son and helping her pay her bills. She denies SI/HI. She is forgetful. She is taking medications as prescriptions as prescribed. SBP 160's. Medication Compliance: Yes Diagnostics Vital Signs (24Hr): Vital Signs - 24 hr 07/20/24 20:00 07/20/24 20:37 07/21/24 08:39 Temperature 97.5 F 97.7 F Pulse Rate 63 64 Respiratory Rate 16 Blood Pressure 141/66 H 141/66 H 170/77 H Pulse Oximetry 100 96 Oxygen Delivery Method Room Air Room Air BMI result Body Mass Index 26.1 Labs 07/14/24 17:29 Imaging Radiology Impressions: ITS Impressions Head CT 07/15/24 16:00 IMPRESSION: Small vessel occlusive disease. Superimposed acute stroke/nonhemorrhagic ischemia cannot be excluded. No acute intracranial hemorrhage. Electronically signed by: Rajesh Cheney MD 07/18/2024 07:16 AM [facility] Medications Medications Current Medications Acetaminophen (Acetaminophen 325 Mg Tablet) 650 mg PO Q6H PRN PRN Reason: Headache/Pain Mild Scale (1-3) Last Admin: 07/20/24 20:59 Dose: 650 mg Al Hydroxide/Mg Hydroxide (Magnesium Hydrox/Alum Hydrox 30 Ml Oral.Susp) 30 ml PO Q6H PRN PRN Reason: Heartburn/Nausea Amlodipine Besylate (Amlodipine Besylate 10 Mg Tablet) 10 mg PO DAILY [facility]; Protocol Last Admin: 07/21/24 08:46 Dose: 10 mg Aspirin (Aspirin 81 Mg Tab.Chew) 81 mg PO DAILY [facility] Last Admin: 07/21/24 08:46 Dose: 81 mg Hydroxyzine HCl (Hydroxyzine Hcl 25 Mg Tablet) 25 mg PO Q6H PRN PRN Reason: Anxiety Isosorbide Mononitrate (Isosorbide Mononitrate 60 Mg Tab.Er.24h) 60 mg PO DAILY [facility]; Protocol Last Admin: 07/21/24 08:45 Dose: 60 mg Lurasidone HCl (Lurasidone Hcl 20 Mg Tablet) 60 mg PO DAILY@1700 [facility] Magnesium Hydroxide (Milk Of Magnesia 30 Ml Oral.Susp) 30 ml PO DAILY PRN PRN Reason: Constipation Metoprolol Tartrate (Metoprolol Tartrate 100 Mg Tablet) 100 mg PO BID [facility]; Protocol Last Admin: 07/21/24 08:47 Dose: 100 mg Omeprazole (Omeprazole 40 Mg Capsule.Dr) 40 mg PO DAILY@0630 [facility] Last Admin: 07/21/24 06:17 Dose: 40 mg Pravastatin Sodium (Pravastatin Sodium 20 Mg Tablet) 20 mg PO BEDTIME [facility] Last Admin: 07/20/24 20:38 Dose: 20 mg Trazodone HCl (Trazodone Hcl 50 Mg Tablet) 50 mg PO BEDTIME MRX1 PRN PRN Reason: Insomnia Last Admin: 07/20/24 20:38 Dose: 50 mg Allergies Allergies Allergy/AdvReac Type Severity Reaction Status Date / Time thao Allergy Intermediate Nausea Verified 07/13/24 22:22 fluphenazine Allergy Intermediate Unknown Verified 07/13/24 22:24 losartan Allergy Intermediate Cough Verified 07/13/24 22:25 ondansetron [From Zofran] Allergy Intermediate Unknown Verified 07/13/24 22:26 pear Allergy Intermediate Nausea Verified 07/13/24 22:22 spironolactone Allergy Intermediate Nausea Verified 07/13/24 22:25 apple Allergy Mild Nausea Verified 07/13/24 22:21 haloperidol AdvReac Intermediate Involuntary Verified 07/13/24 22:24 Spasms Assessment & Plan Assessment & Plan (1) Schizophrenia: Status: Acute Code(s): F20.9 - Schizophrenia, unspecified Plan Mrs. Thibodeaux is a 74 year-old woman with hx of schizophrenia. She also has hx of significant trauma. She was sect from her OP provider (unclear of psych or PCP) as pt reported AH of children, no SI/HI. In the ED concern in terms of her ability to care for herself, increase forgetfulness, pt was not aware what medications she is supposed to be taking and pharmacy confirmed she had not filled psychotropic medications since November 2023. Son had reported to ED concern in terms of ability to care for herself. This automobile and property underwriter called son, Phani but unable to reach him. Will continue to attempt communication with son. Pending collateral information from OP provider as well. We discussed risks, benefits and alternative treatment options, will restart latuda 20mg po daily with dinner- will titrate as needed. Will complete memory/cognitive assessment. If head image not completed recently, will obtain head CT. Hospitalist did start amlodipine for elevated SBP. Will order iron studies, due to microcytic anemia. will do CMP as we do not have LFTs and BUN was elevated at 38. PLAN 07/17 continue tx. pending MOCA/ACL. increase latuda to 40mg po dinner. 07/19 continue tx. Family meeting with her son on 07/20/23. 07/20 continue tx. 07/21 continue tx. may increase latuda. Reason for continued inpatient stay Substantial Risk for: inability to function Time Spent With Patient Time: Total time managing care of this patient today ____ minutes.
[2024-07-21 14:38] VITALS: BMI 26.8
[2024-07-21] MEDS: Lurasidone HCl 20 MG TABLET 60 MG PO (16:39)
[2024-07-21 20:00] VITALS: BP 154/69; PULSE 76; RESP 16; TEMP 36.9; O2SAT 100
[2024-07-21 20:35] VITALS: BP 154/69; PULSE 76
[2024-07-21] MEDS: Pravastatin Sodium 20 MG TABLET PO (20:35)
[2024-07-22] MEDS: Omeprazole 40 MG CAPSULE.DR PO (05:44)
[2024-07-22 08:15] VITALS: BP 150/70; PULSE 63; RESP 18; TEMP 36.6; O2SAT 98
[2024-07-22] MEDS: Isosorbide Mononitrate 60 MG TAB.ER.24H PO (08:49)
[2024-07-22] MEDS: Aspirin 81 MG TAB.CHEW PO (08:49)
[2024-07-22] MEDS: Metoprolol Tartrate 100 MG TABLET PO ×2 (08:49→21:04)
[2024-07-22] MEDS: amLODIPine Besylate 10 MG TABLET PO (08:49)
[2024-07-22] MEDS: Acetaminophen 325 MG TABLET 650 MG PO ×2 (08:49→21:05)
--- NOTE | 2024-07-22 09:51 | P.PNPSI_ITS ---
Subjective Subjective Date of Service: 07/22/24 Reason For Visit: F25.1 Schizoaffective Disorder, Depressive Type Subjective Notes: Conditional Voluntary Interim History: Pt slept through the night. She was up earlier and showered. Improved hygiene. She was confused as to when was the day she saw her son. She reports she has schizophrenia. She explains that sometimes she gets suspicious about others. She reports after she gave keys to her son and check book that she worried that she was going to lose everything. She denies SI/HI. She reports some voices, seem related to some paranoid towards son and him stealing. She does say that for the most part she trusts him and thinks he is trying to help. Review of Systems Review of Systems Pt denies any pain. No GI concerns.No SOB. No chest pain. Mental Status Exam Mental Status Exam Narrative: Appearance: wearing hospital gown, fair hygiene, in NAD Behavior: cooperative, friendly, calm Psychomotor: no agitation or retardation noted Speech: clear, normal rate/rhythm/volume, spontaneous TP: linear TC: discharge Mood: good Affect: congruent SI: none HI: none VH/AH: intermittent auditory hallucinations; intermittent VH of children, denies CAH Delusions: no overt delusional content noted or reported Insight/judgment: some impairment Memory/cog: alert, oriented to place, month, situation is vague. ACL 4.2, moca: . Diagnostics Vital Signs (24Hr): Vital Signs - 24 hr 07/21/24 20:00 07/21/24 20:35 07/22/24 08:15 Temperature 98.5 F 97.8 F Pulse Rate 76 76 63 Respiratory Rate 16 18 Blood Pressure 154/69 H 154/69 H 150/70 H Pulse Oximetry 100 98 Oxygen Delivery Method Room Air Room Air BMI result Body Mass Index 26.8 Labs 07/14/24 17:29 Imaging Radiology Impressions: ITS Impressions Head CT 07/15/24 16:00 IMPRESSION: Small vessel occlusive disease. Superimposed acute stroke/nonhemorrhagic ischemia cannot be excluded. No acute intracranial hemorrhage. Electronically signed by: Rajesh Cheney MD 07/18/2024 07:16 AM [facility] Medications Medications Current Medications Acetaminophen (Acetaminophen 325 Mg Tablet) 650 mg PO Q6H PRN PRN Reason: Headache/Pain Mild Scale (1-3) Last Admin: 07/22/24 08:49 Dose: 650 mg Al Hydroxide/Mg Hydroxide (Magnesium Hydrox/Alum Hydrox 30 Ml Oral.Susp) 30 ml PO Q6H PRN PRN Reason: Heartburn/Nausea Amlodipine Besylate (Amlodipine Besylate 10 Mg Tablet) 10 mg PO DAILY [facility]; Protocol Last Admin: 07/22/24 08:49 Dose: 10 mg Aspirin (Aspirin 81 Mg Tab.Chew) 81 mg PO DAILY [facility] Last Admin: 07/22/24 08:49 Dose: 81 mg Hydroxyzine HCl (Hydroxyzine Hcl 25 Mg Tablet) 25 mg PO Q6H PRN PRN Reason: Anxiety Isosorbide Mononitrate (Isosorbide Mononitrate 60 Mg Tab.Er.24h) 60 mg PO DAILY [facility]; Protocol Last Admin: 07/22/24 08:49 Dose: 60 mg Lurasidone HCl (Lurasidone Hcl 40 Mg Tablet) 120 mg PO DAILY@1700 [facility] Magnesium Hydroxide (Milk Of Magnesia 30 Ml Oral.Susp) 30 ml PO DAILY PRN PRN Reason: Constipation Metoprolol Tartrate (Metoprolol Tartrate 100 Mg Tablet) 100 mg PO BID [facility]; Protocol Last Admin: 07/22/24 08:49 Dose: 100 mg Omeprazole (Omeprazole 40 Mg Capsule.Dr) 40 mg PO DAILY@0630 [facility] Last Admin: 07/22/24 05:44 Dose: 40 mg Pravastatin Sodium (Pravastatin Sodium 20 Mg Tablet) 20 mg PO BEDTIME [facility] Last Admin: 07/21/24 20:35 Dose: 20 mg Trazodone HCl (Trazodone Hcl 50 Mg Tablet) 50 mg PO BEDTIME MRX1 PRN PRN Reason: Insomnia Last Admin: 07/20/24 20:38 Dose: 50 mg Allergies Allergies Allergy/AdvReac Type Severity Reaction Status Date / Time thao Allergy Intermediate Nausea Verified 07/13/24 22:22 fluphenazine Allergy Intermediate Unknown Verified 07/13/24 22:24 losartan Allergy Intermediate Cough Verified 07/13/24 22:25 ondansetron [From Zofran] Allergy Intermediate Unknown Verified 07/13/24 22:26 pear Allergy Intermediate Nausea Verified 07/13/24 22:22 spironolactone Allergy Intermediate Nausea Verified 07/13/24 22:25 apple Allergy Mild Nausea Verified 07/13/24 22:21 haloperidol AdvReac Intermediate Involuntary Verified 07/13/24 22:24 Spasms Assessment & Plan Assessment & Plan (1) Schizophrenia: Status: Acute Code(s): F20.9 - Schizophrenia, unspecified Plan Mrs. Thibodeaux is a 74 year-old woman with hx of schizophrenia. She also has hx of significant trauma. She was sect from her OP provider (unclear of psych or PCP) as pt reported AH of children, no SI/HI. In the ED concern in terms of her ability to care for herself, increase forgetfulness, pt was not aware what medications she is supposed to be taking and pharmacy confirmed she had not filled psychotropic medications since November 2023. Son had reported to ED concern in terms of ability to care for herself. This marketing writer called son, Phani but unable to reach him. Will continue to attempt communication with son. Pending collateral information from OP provider as well. We discussed risks, benefits and alternative treatment options, will restart latuda 20mg po daily with dinner- will titrate as needed. Will complete memory/cognitive assessment. If head image not completed recently, will obtain head CT. Hospitalist did start amlodipine for elevated SBP. Will order iron studies, due to microcytic anemia. will do CMP as we do not have LFTs and BUN was elevated at 38. PLAN 07/17 continue tx. pending MOCA/ACL. increase latuda to 40mg po dinner. 07/19 continue tx. Family meeting with her son on 07/20/23. 07/20 continue tx. 07/21 continue tx. may increase latuda. 07/22 increase latuda 120mg po with dinner. Reason for continued inpatient stay Substantial Risk for: inability to function Time Spent With Patient Time: Total time managing care of this patient today ____ minutes.
[2024-07-22] MEDS: Lurasidone HCl 40 MG TABLET 120 MG PO (16:48)
[2024-07-22 20:00] VITALS: BP 148/84; PULSE 77; RESP 16; TEMP 37.4; O2SAT 100
[2024-07-22 21:04] VITALS: BP 148/84; PULSE 77
[2024-07-22] MEDS: Pravastatin Sodium 20 MG TABLET PO (21:05)
[2024-07-23] MEDS: Omeprazole 40 MG CAPSULE.DR PO (06:01)
[2024-07-23 08:39] VITALS: BP 164/80; PULSE 62; RESP 17; TEMP 36.2; O2SAT 93
[2024-07-23] MEDS: Metoprolol Tartrate 100 MG TABLET PO ×2 (08:49→20:50)
[2024-07-23] MEDS: Isosorbide Mononitrate 60 MG TAB.ER.24H PO (08:49)
[2024-07-23] MEDS: Aspirin 81 MG TAB.CHEW PO (08:49)
[2024-07-23] MEDS: amLODIPine Besylate 10 MG TABLET PO (08:49)
--- NOTE | 2024-07-23 13:01 | HO.PSYCHPN ---
Subjective Subjective Date of Service: 07/23/24 Reason For Visit: F25.1 Schizoaffective Disorder, Depressive Type Subjective Notes: Conditional Voluntary Interim History: Patient was seen and discussed in rounds today. Records and plans were reviewed. She has been pleasant, cooperative and compliant with her treatment and medications. She did not sleep too well but did not want to change anything. No side effects and no other complaints. Review of Systems Review of Systems Sleep Yes all other systems are reviewed and are negative Mental Status Exam Mental Status Exam Narrative: In today's visit she is alert, pleasant and interactive. Normal speech. Good eye contact. Appropriate affect. No acute signs of psychosis. Denies any hallucinations but has reported having had some auditory hallucinations. No SI. No gross cognitive deficits. Judgment is intact Diagnostics Vital Signs (24Hr): Vital Signs - 24 hr 07/22/24 20:00 07/22/24 21:04 07/23/24 08:39 Temperature 99.4 F 97.2 F Pulse Rate 77 77 62 Respiratory Rate 16 17 Blood Pressure 148/84 H 148/84 H 164/80 H Pulse Oximetry 100 93 Oxygen Delivery Method Room Air Room Air BMI result Body Mass Index 26.8 Labs 07/14/24 17:29 Imaging Radiology Impressions: ITS Impressions Head CT 07/15/24 16:00 IMPRESSION: Small vessel occlusive disease. Superimposed acute stroke/nonhemorrhagic ischemia cannot be excluded. No acute intracranial hemorrhage. Electronically signed by: Rajesh Cheney MD 07/18/2024 07:16 AM [facility] Medications Medications Current Medications Acetaminophen (Acetaminophen 325 Mg Tablet) 650 mg PO Q6H PRN PRN Reason: Headache/Pain Mild Scale (1-3) Last Admin: 07/22/24 21:05 Dose: 650 mg Al Hydroxide/Mg Hydroxide (Magnesium Hydrox/Alum Hydrox 30 Ml Oral.Susp) 30 ml PO Q6H PRN PRN Reason: Heartburn/Nausea Amlodipine Besylate (Amlodipine Besylate 10 Mg Tablet) 10 mg PO DAILY [facility]; Protocol Last Admin: 07/23/24 08:49 Dose: 10 mg Aspirin (Aspirin 81 Mg Tab.Chew) 81 mg PO DAILY [facility] Last Admin: 07/23/24 08:49 Dose: 81 mg Hydroxyzine HCl (Hydroxyzine Hcl 25 Mg Tablet) 25 mg PO Q6H PRN PRN Reason: Anxiety Isosorbide Mononitrate (Isosorbide Mononitrate 60 Mg Tab.Er.24h) 60 mg PO DAILY [facility]; Protocol Last Admin: 07/23/24 08:49 Dose: 60 mg Lurasidone HCl (Lurasidone Hcl 40 Mg Tablet) 120 mg PO DAILY@1700 [facility] Last Admin: 07/22/24 16:48 Dose: 120 mg Magnesium Hydroxide (Milk Of Magnesia 30 Ml Oral.Susp) 30 ml PO DAILY PRN PRN Reason: Constipation Metoprolol Tartrate (Metoprolol Tartrate 100 Mg Tablet) 100 mg PO BID [facility]; Protocol Last Admin: 07/23/24 08:49 Dose: 100 mg Omeprazole (Omeprazole 40 Mg Capsule.Dr) 40 mg PO DAILY@0630 [facility] Last Admin: 07/23/24 06:01 Dose: 40 mg Pravastatin Sodium (Pravastatin Sodium 20 Mg Tablet) 20 mg PO BEDTIME [facility] Last Admin: 07/22/24 21:05 Dose: 20 mg Trazodone HCl (Trazodone Hcl 50 Mg Tablet) 50 mg PO BEDTIME MRX1 PRN PRN Reason: Insomnia Last Admin: 07/20/24 20:38 Dose: 50 mg Allergies Allergies Allergy/AdvReac Type Severity Reaction Status Date / Time thao Allergy Intermediate Nausea Verified 07/13/24 22:22 fluphenazine Allergy Intermediate Unknown Verified 07/13/24 22:24 losartan Allergy Intermediate Cough Verified 07/13/24 22:25 ondansetron [From Zofran] Allergy Intermediate Unknown Verified 07/13/24 22:26 pear Allergy Intermediate Nausea Verified 07/13/24 22:22 spironolactone Allergy Intermediate Nausea Verified 07/13/24 22:25 apple Allergy Mild Nausea Verified 07/13/24 22:21 haloperidol AdvReac Intermediate Involuntary Verified 07/13/24 22:24 Spasms Assessment & Plan Assessment & Plan (1) Schizophrenia: Status: Acute Code(s): F20.9 - Schizophrenia, unspecified Plan Mrs. Thibodeaux is a 74 year-old woman with hx of schizophrenia. She also has hx of significant trauma. She was sect from her OP provider (unclear of psych or PCP) as pt reported AH of children, no SI/HI. In the ED concern in terms of her ability to care for herself, increase forgetfulness, pt was not aware what medications she is supposed to be taking and pharmacy confirmed she had not filled psychotropic medications since November 2023. Son had reported to ED concern in terms of ability to care for herself. This copywriter called son, Phani but unable to reach him. Will continue to attempt communication with son. Pending collateral information from OP provider as well. We discussed risks, benefits and alternative treatment options, will restart latuda 20mg po daily with dinner- will titrate as needed. Will complete memory/cognitive assessment. If head image not completed recently, will obtain head CT. Hospitalist did start amlodipine for elevated SBP. Will order iron studies, due to microcytic anemia. will do CMP as we do not have LFTs and BUN was elevated at 38. PLAN 07/17 continue tx. pending MOCA/ACL. increase latuda to 40mg po dinner. 07/19 continue tx. Family meeting with her son on 07/20/23. 07/20 continue tx. 07/21 continue tx. may increase latuda. 07/22 increase latuda 120mg po with dinner. 07/23/2024: Continue current regimen and plans Reason for continued inpatient stay Substantial Risk for: med/psych decompensation Time Spent With Patient Time: Total time managing care of this patient today ____ minutes.
[2024-07-23] MEDS: Lurasidone HCl 40 MG TABLET 120 MG PO (16:44)
[2024-07-23 20:00] VITALS: BP 158/70; PULSE 73; RESP 16; TEMP 36.8; O2SAT 98
[2024-07-23 20:50] VITALS: BP 158/70; PULSE 73
[2024-07-23] MEDS: Pravastatin Sodium 20 MG TABLET PO (20:50)
[2024-07-24] MEDS: Omeprazole 40 MG CAPSULE.DR PO (06:02)
[2024-07-24 07:55] VITALS: BP 162/70; PULSE 68; RESP 18; TEMP 36.7; O2SAT 97
[2024-07-24] MEDS: Aspirin 81 MG TAB.CHEW PO (08:21)
[2024-07-24] MEDS: Isosorbide Mononitrate 60 MG TAB.ER.24H PO (08:21)
[2024-07-24] MEDS: amLODIPine Besylate 10 MG TABLET PO (08:21)
[2024-07-24] MEDS: Metoprolol Tartrate 100 MG TABLET PO ×2 (08:21→20:21)
--- NOTE | 2024-07-24 12:08 | P.PNPSI_ITS ---
Subjective Subjective Date of Service: 07/24/24 Reason For Visit: F25.1 Schizoaffective Disorder, Depressive Type Subjective Notes: Conditional Voluntary Interim History: Patient was seen and discussed in rounds today. Records and plans were reviewed. She has been pleasant, cooperative and compliant with her treatment and medications. Nurses report no behavioral issues. No changes were made Review of Systems Review of Systems Yes all other systems are reviewed and are negative Mental Status Exam Mental Status Exam Narrative: In today's visit she is alert, pleasant and interactive. Normal speech. Good eye contact. Appropriate affect. No acute signs of psychosis. Denies any hallucinations but has reported having had some auditory hallucinations. No SI. No gross cognitive deficits. Judgment is intact Diagnostics Vital Signs (24Hr): Vital Signs - 24 hr 07/23/24 20:00 07/23/24 20:50 07/24/24 07:55 Temperature 98.2 F 98.0 F Pulse Rate 73 73 68 Respiratory Rate 16 18 Blood Pressure 158/70 H 158/70 H 162/70 H Pulse Oximetry 98 97 Oxygen Delivery Method Room Air Room Air BMI result Body Mass Index 26.8 Labs 07/14/24 17:29 Imaging Radiology Impressions: ITS Impressions Head CT 07/15/24 16:00 IMPRESSION: Small vessel occlusive disease. Superimposed acute stroke/nonhemorrhagic ischemia cannot be excluded. No acute intracranial hemorrhage. Electronically signed by: Rajesh Cheney MD 07/18/2024 07:16 AM [facility] [place] Medications Medications Current Medications Acetaminophen (Acetaminophen 325 Mg Tablet) 650 mg PO Q6H PRN PRN Reason: Headache/Pain Mild Scale (1-3) Last Admin: 07/22/24 21:05 Dose: 650 mg Al Hydroxide/Mg Hydroxide (Magnesium Hydrox/Alum Hydrox 30 Ml Oral.Susp) 30 ml PO Q6H PRN PRN Reason: Heartburn/Nausea Amlodipine Besylate (Amlodipine Besylate 10 Mg Tablet) 10 mg PO DAILY [facility]; Protocol Last Admin: 07/24/24 08:21 Dose: 10 mg Aspirin (Aspirin 81 Mg Tab.Chew) 81 mg PO DAILY [facility] Last Admin: 07/24/24 08:21 Dose: 81 mg Hydroxyzine HCl (Hydroxyzine Hcl 25 Mg Tablet) 25 mg PO Q6H PRN PRN Reason: Anxiety Isosorbide Mononitrate (Isosorbide Mononitrate 60 Mg Tab.Er.24h) 60 mg PO DAILY [facility]; Protocol Last Admin: 07/24/24 08:21 Dose: 60 mg Lurasidone HCl (Lurasidone Hcl 40 Mg Tablet) 120 mg PO DAILY@1700 [facility] Last Admin: 07/23/24 16:44 Dose: 120 mg Magnesium Hydroxide (Milk Of Magnesia 30 Ml Oral.Susp) 30 ml PO DAILY PRN PRN Reason: Constipation Metoprolol Tartrate (Metoprolol Tartrate 100 Mg Tablet) 100 mg PO BID [facility]; Protocol Last Admin: 07/24/24 08:21 Dose: 100 mg Omeprazole (Omeprazole 40 Mg Capsule.Dr) 40 mg PO DAILY@0630 [facility] Last Admin: 07/24/24 06:02 Dose: 40 mg Pravastatin Sodium (Pravastatin Sodium 20 Mg Tablet) 20 mg PO BEDTIME [facility] Last Admin: 07/23/24 20:50 Dose: 20 mg Trazodone HCl (Trazodone Hcl 50 Mg Tablet) 50 mg PO BEDTIME MRX1 PRN PRN Reason: Insomnia Last Admin: 07/20/24 20:38 Dose: 50 mg Allergies Allergies Allergy/AdvReac Type Severity Reaction Status Date / Time thao Allergy Intermediate Nausea Verified 07/13/24 22:22 fluphenazine Allergy Intermediate Unknown Verified 07/13/24 22:24 losartan Allergy Intermediate Cough Verified 07/13/24 22:25 ondansetron [From Zofran] Allergy Intermediate Unknown Verified 07/13/24 22:26 pear Allergy Intermediate Nausea Verified 07/13/24 22:22 spironolactone Allergy Intermediate Nausea Verified 07/13/24 22:25 apple Allergy Mild Nausea Verified 07/13/24 22:21 haloperidol AdvReac Intermediate Involuntary Verified 07/13/24 22:24 Spasms Assessment & Plan Assessment & Plan (1) Schizophrenia: Status: Acute Code(s): F20.9 - Schizophrenia, unspecified Plan Mrs. Thibodeaux is a 74 year-old woman with hx of schizophrenia. She also has hx of significant trauma. She was sect from her OP provider (unclear of psych or PCP) as pt reported AH of children, no SI/HI. In the ED concern in terms of her ability to care for herself, increase forgetfulness, pt was not aware what medications she is supposed to be taking and pharmacy confirmed she had not filled psychotropic medications since November 2023. Son had reported to ED concern in terms of ability to care for herself. This junior technical writer called son, Phani but unable to reach him. Will continue to attempt communication with son. Pending collateral information from OP provider as well. We discussed risks, benefits and alternative treatment options, will restart latuda 20mg po daily with dinner- will titrate as needed. Will complete memory/cognitive assessment. If head image not completed recently, will obtain head CT. Hospitalist did start amlodipine for elevated SBP. Will order iron studies, due to microcytic anemia. will do CMP as we do not have LFTs and BUN was elevated at 38. PLAN 07/17 continue tx. pending MOCA/ACL. increase latuda to 40mg po dinner. 07/19 continue tx. Family meeting with her son on 07/20/23. 07/20 continue tx. 07/21 continue tx. may increase latuda. 07/22 increase latuda 120mg po with dinner. 07/23/2024: Continue current regimen and plans 07/24/2024: Continue current regimen and plans Reason for continued inpatient stay Substantial Risk for: med/psych decompensation Time Spent With Patient Time: Total time managing care of this patient today ____ minutes.
[2024-07-24 12:40] VITALS: BP 135/66
[2024-07-24] MEDS: lisinopriL 10 MG TABLET PO (12:40)
[2024-07-24] MEDS: Lurasidone HCl 40 MG TABLET 120 MG PO (16:32)
[2024-07-24 20:00] VITALS: BP 164/70; PULSE 88; RESP 18; TEMP 36.7; O2SAT 97
[2024-07-24] MEDS: traZODone HCL 50 MG TABLET PO (20:21)
[2024-07-24] MEDS: Pravastatin Sodium 20 MG TABLET PO (20:21)
--- NOTE | 2024-07-25 | ECG_ITS ---
Test Reason : chest pain Blood Pressure : */* mmHG Vent. Rate : 62 BPM Atrial Rate : 62 BPM P-R Int : 148 ms QRS Dur : 86 ms QT Int : 410 ms P-R-T Axes : 71 47 58 degrees QTcB Int : 416 ms Normal sinus rhythm Septal infarct , age undetermined Abnormal ECG No previous ECGs available Referred By: Adela Salgado Electronically Signed By: NICKY CASTORENA MD
[2024-07-25] MEDS: Omeprazole 40 MG CAPSULE.DR PO (06:00)
[2024-07-25 08:00] VITALS: BP 187/81; PULSE 65; RESP 18; TEMP 36.8; O2SAT 99
[2024-07-25 08:04] VITALS: BP 187/81
[2024-07-25] MEDS: amLODIPine Besylate 10 MG TABLET PO (08:04)
[2024-07-25 08:05] VITALS: BP 187/81; PULSE 65
[2024-07-25] MEDS: Isosorbide Mononitrate 60 MG TAB.ER.24H PO (08:05)
[2024-07-25] MEDS: Aspirin 81 MG TAB.CHEW PO (08:05)
[2024-07-25] MEDS: lisinopriL 10 MG TABLET PO (08:05)
[2024-07-25] MEDS: Metoprolol Tartrate 100 MG TABLET PO ×2 (08:05→20:29)
[2024-07-25] MEDS: Magnesium Hydrox/Alum Hydrox 30 ML ORAL.SUSP PO (08:06)
[2024-07-25] MEDS: Acetaminophen 325 MG TABLET 650 MG PO (09:08)
--- NOTE | 2024-07-25 10:06 | P.PNPSI_ITS ---
Subjective Subjective Date of Service: 07/25/24 Reason For Visit: F25.1 Schizoaffective Disorder, Depressive Type Subjective Notes: Conditional Voluntary Interim History: Pt reports she is hoping to go home soon. She denies VH/AH. No SI/HI. She is taking medications as prescribed. No behavioral concerns. She reports palpitation this morning. She does have hx of angina. WIll check EKG. Medication Compliance: Yes Side effects from medications: No Attending Groups: Yes Diagnostics Vital Signs (24Hr): Vital Signs - 24 hr 07/24/24 12:40 07/24/24 20:00 07/25/24 08:00 Temperature 98.0 F 98.2 F Pulse Rate 88 65 Respiratory Rate 18 18 Blood Pressure 135/66 164/70 H 187/81 H Pulse Oximetry 97 99 Oxygen Delivery Method Room Air Room Air 07/25/24 08:04 07/25/24 08:05 07/25/24 08:05 Temperature Pulse Rate 65 Respiratory Rate Blood Pressure 187/81 H 187/81 H 187/81 H Pulse Oximetry Oxygen Delivery Method 07/25/24 08:05 Temperature Pulse Rate Respiratory Rate Blood Pressure 187/81 H Pulse Oximetry Oxygen Delivery Method BMI result Body Mass Index 26.8 Labs 07/14/24 17:29 Imaging Radiology Impressions: ITS Impressions Head CT 07/15/24 16:00 IMPRESSION: Small vessel occlusive disease. Superimposed acute stroke/nonhemorrhagic ischemia cannot be excluded. No acute intracranial hemorrhage. Electronically signed by: Rajesh Cheney MD 07/18/2024 07:16 AM [facility] Medications Medications Current Medications Acetaminophen (Acetaminophen 325 Mg Tablet) 650 mg PO Q6H PRN PRN Reason: Headache/Pain Mild Scale (1-3) Last Admin: 07/25/24 09:08 Dose: 650 mg Al Hydroxide/Mg Hydroxide (Magnesium Hydrox/Alum Hydrox 30 Ml Oral.Susp) 30 ml PO Q6H PRN PRN Reason: Heartburn/Nausea Last Admin: 07/25/24 08:06 Dose: 30 ml Amlodipine Besylate (Amlodipine Besylate 10 Mg Tablet) 10 mg PO DAILY [facility]; Protocol Last Admin: 07/25/24 08:04 Dose: 10 mg Aspirin (Aspirin 81 Mg Tab.Chew) 81 mg PO DAILY [facility] Last Admin: 07/25/24 08:05 Dose: 81 mg Hydroxyzine HCl (Hydroxyzine Hcl 25 Mg Tablet) 25 mg PO Q6H PRN PRN Reason: Anxiety Isosorbide Mononitrate (Isosorbide Mononitrate 60 Mg Tab.Er.24h) 60 mg PO DAILY [facility]; Protocol Last Admin: 07/25/24 08:05 Dose: 60 mg Lisinopril (Lisinopril 10 Mg Tablet) 10 mg PO DAILY [facility]; Protocol Last Admin: 07/25/24 08:05 Dose: 10 mg Lurasidone HCl (Lurasidone Hcl 40 Mg Tablet) 120 mg PO DAILY@1700 [facility] Last Admin: 07/24/24 16:32 Dose: 120 mg Magnesium Hydroxide (Milk Of Magnesia 30 Ml Oral.Susp) 30 ml PO DAILY PRN PRN Reason: Constipation Metoprolol Tartrate (Metoprolol Tartrate 100 Mg Tablet) 100 mg PO BID [facility]; Protocol Last Admin: 07/25/24 08:05 Dose: 100 mg Omeprazole (Omeprazole 40 Mg Capsule.Dr) 40 mg PO DAILY@0630 [facility] Last Admin: 07/25/24 06:00 Dose: 40 mg Pravastatin Sodium (Pravastatin Sodium 20 Mg Tablet) 20 mg PO BEDTIME [facility] Last Admin: 07/24/24 20:21 Dose: 20 mg Trazodone HCl (Trazodone Hcl 50 Mg Tablet) 50 mg PO BEDTIME MRX1 PRN PRN Reason: Insomnia Last Admin: 07/24/24 20:21 Dose: 50 mg Allergies Allergies Allergy/AdvReac Type Severity Reaction Status Date / Time thao Allergy Intermediate Nausea Verified 07/13/24 22:22 fluphenazine Allergy Intermediate Unknown Verified 07/13/24 22:24 losartan Allergy Intermediate Cough Verified 07/13/24 22:25 ondansetron [From Zofran] Allergy Intermediate Unknown Verified 07/13/24 22:26 pear Allergy Intermediate Nausea Verified 07/13/24 22:22 spironolactone Allergy Intermediate Nausea Verified 07/13/24 22:25 apple Allergy Mild Nausea Verified 07/13/24 22:21 haloperidol AdvReac Intermediate Involuntary Verified 07/13/24 22:24 Spasms Assessment & Plan Assessment & Plan (1) Schizophrenia: Status: Acute Code(s): F20.9 - Schizophrenia, unspecified Plan Mrs. Thibodeaux is a 74 year-old woman with hx of schizophrenia. She also has hx of significant trauma. She was sect from her OP provider (unclear of psych or PCP) as pt reported AH of children, no SI/HI. In the ED concern in terms of her ability to care for herself, increase forgetfulness, pt was not aware what medications she is supposed to be taking and pharmacy confirmed she had not filled psychotropic medications since November 2023. Son had reported to ED concern in terms of ability to care for herself. This manual writer called son, Phani but unable to reach him. Will continue to attempt communication with son. Pending collateral information from OP provider as well. We discussed risks, benefits and alternative treatment options, will restart latuda 20mg po daily with dinner- will titrate as needed. Will complete memory/cognitive assessment. If head image not completed recently, will obtain head CT. Hospitalist did start amlodipine for elevated SBP. Will order iron studies, due to microcytic anemia. will do CMP as we do not have LFTs and BUN was elevated at 38. PLAN 07/17 continue tx. pending MOCA/ACL. increase latuda to 40mg po dinner. 07/19 continue tx. Family meeting with her son on 07/20/23. 07/20 continue tx. 07/21 continue tx. may increase latuda. 07/22 increase latuda 120mg po with dinner. 07/23/2024: Continue current regimen and plans 07/24/2024: Continue current regimen and plans 07/25 continue tx. ekg ordered as pt reports chest pain. she does have hx of angina per PCP documentation, but will check ekg. Reason for continued inpatient stay Substantial Risk for: inability to function Time Spent With Patient Time: Total time managing care of this patient today ____ minutes.
--- NOTE | 2024-07-25 13:17 | PC.NURSE ---
Pt is alert and cooperative. C/o chest pain at am. BP 187/81, P 65, R 18. No SOB or respiratory distress noted. Pt stated she has those pains at times. Machiquitax given, Adela Mariscal notified. Shortly after [place] reported medication was effective and denied chest pain or discomfort. After meds BP recheck for 117/57, P 60. Tylenol for right knee chronic pain and headache. Med was effective. Will continue to monitor.
[2024-07-25] MEDS: Lurasidone HCl 40 MG TABLET 120 MG PO (17:48)
[2024-07-25 20:00] VITALS: BP 137/63; PULSE 86; TEMP 37.1; O2SAT 98
[2024-07-25 20:29] VITALS: BP 137/63; PULSE 86
[2024-07-25] MEDS: Pravastatin Sodium 20 MG TABLET PO (20:29)
[2024-07-25] MEDS: traZODone HCL 50 MG TABLET PO (20:30)
[2024-07-26] MEDS: Omeprazole 40 MG CAPSULE.DR PO (06:27)
[2024-07-26 08:00] VITALS: BP 129/60; PULSE 62; RESP 18; TEMP 36.8; O2SAT 99
[2024-07-26 08:08] VITALS: BP 129/60
[2024-07-26] MEDS: amLODIPine Besylate 10 MG TABLET PO (08:08)
[2024-07-26 08:09] VITALS: BP 129/60; PULSE 62
[2024-07-26] MEDS: Aspirin 81 MG TAB.CHEW PO (08:09)
[2024-07-26] MEDS: Metoprolol Tartrate 100 MG TABLET PO ×2 (08:09→20:32)
[2024-07-26] MEDS: lisinopriL 10 MG TABLET PO (08:09)
[2024-07-26] MEDS: Isosorbide Mononitrate 60 MG TAB.ER.24H PO (08:09)
[2024-07-26] MEDS: Acetaminophen 325 MG TABLET 650 MG PO (10:26)
--- NOTE | 2024-07-26 15:40 | HO.PSYCHPN ---
Subjective Subjective Date of Service: 07/26/24 Reason For Visit: F25.1 Schizoaffective Disorder, Depressive Type Subjective Notes: Conditional Voluntary Interim History: Pt slept through the night. She reports feeling better. She is visible and social with peers. She reports voices come and go and that this morning she heard some children. No over delusional content reported, no overt paranoia, as she has had in the past. She is taking medications as prescribed. SBP 170's Medication Compliance: Yes Side effects from medications: No Attending Groups: Yes Diagnostics Vital Signs (24Hr): Vital Signs - 24 hr 07/25/24 20:00 07/25/24 20:29 07/26/24 08:00 Temperature 98.7 F 98.2 F Pulse Rate 86 86 62 Respiratory Rate 18 Blood Pressure 137/63 137/63 129/60 Pulse Oximetry 98 99 Oxygen Delivery Method Room Air Room Air 07/26/24 08:08 07/26/24 08:09 07/26/24 08:09 Temperature Pulse Rate Respiratory Rate Blood Pressure 129/60 129/60 129/60 Pulse Oximetry Oxygen Delivery Method 07/26/24 08:09 Temperature Pulse Rate 62 Respiratory Rate Blood Pressure 129/60 Pulse Oximetry Oxygen Delivery Method BMI result Body Mass Index 26.8 Labs 07/14/24 17:29 Imaging Radiology Impressions: ITS Impressions Head CT 07/15/24 16:00 IMPRESSION: Small vessel occlusive disease. Superimposed acute stroke/nonhemorrhagic ischemia cannot be excluded. No acute intracranial hemorrhage. Electronically signed by: Rajesh Cheney MD 07/18/2024 07:16 AM [facility] Medications Medications Current Medications Acetaminophen (Acetaminophen 325 Mg Tablet) 650 mg PO Q6H PRN PRN Reason: Headache/Pain Mild Scale (1-3) Last Admin: 07/26/24 10:26 Dose: 650 mg Al Hydroxide/Mg Hydroxide (Magnesium Hydrox/Alum Hydrox 30 Ml Oral.Susp) 30 ml PO Q6H PRN PRN Reason: Heartburn/Nausea Last Admin: 07/25/24 08:06 Dose: 30 ml Amlodipine Besylate (Amlodipine Besylate 10 Mg Tablet) 10 mg PO DAILY [facility]; Protocol Last Admin: 07/26/24 08:08 Dose: 10 mg Aspirin (Aspirin 81 Mg Tab.Chew) 81 mg PO DAILY [facility] Last Admin: 07/26/24 08:09 Dose: 81 mg Hydroxyzine HCl (Hydroxyzine Hcl 25 Mg Tablet) 25 mg PO Q6H PRN PRN Reason: Anxiety Isosorbide Mononitrate (Isosorbide Mononitrate 60 Mg Tab.Er.24h) 60 mg PO DAILY [facility]; Protocol Last Admin: 07/26/24 08:09 Dose: 60 mg Lisinopril (Lisinopril 10 Mg Tablet) 10 mg PO DAILY [facility]; Protocol Last Admin: 07/26/24 08:09 Dose: 10 mg Lurasidone HCl (Lurasidone Hcl 40 Mg Tablet) 120 mg PO DAILY@1700 [facility] Last Admin: 07/25/24 17:48 Dose: 120 mg Magnesium Hydroxide (Milk Of Magnesia 30 Ml Oral.Susp) 30 ml PO DAILY PRN PRN Reason: Constipation Metoprolol Tartrate (Metoprolol Tartrate 100 Mg Tablet) 100 mg PO BID [facility]; Protocol Last Admin: 07/26/24 08:09 Dose: 100 mg Omeprazole (Omeprazole 40 Mg Capsule.Dr) 40 mg PO DAILY@0630 [facility] Last Admin: 07/26/24 06:27 Dose: 40 mg Pravastatin Sodium (Pravastatin Sodium 20 Mg Tablet) 20 mg PO BEDTIME [facility] Last Admin: 07/25/24 20:29 Dose: 20 mg Trazodone HCl (Trazodone Hcl 50 Mg Tablet) 50 mg PO BEDTIME MRX1 PRN PRN Reason: Insomnia Last Admin: 07/25/24 20:30 Dose: 50 mg Allergies Allergies Allergy/AdvReac Type Severity Reaction Status Date / Time thao Allergy Intermediate Nausea Verified 07/13/24 22:22 fluphenazine Allergy Intermediate Unknown Verified 07/13/24 22:24 losartan Allergy Intermediate Cough Verified 07/13/24 22:25 ondansetron [From Zofran] Allergy Intermediate Unknown Verified 07/13/24 22:26 pear Allergy Intermediate Nausea Verified 07/13/24 22:22 spironolactone Allergy Intermediate Nausea Verified 07/13/24 22:25 apple Allergy Mild Nausea Verified 07/13/24 22:21 haloperidol AdvReac Intermediate Involuntary Verified 07/13/24 22:24 Spasms Assessment & Plan Assessment & Plan (1) Schizophrenia: Status: Acute Code(s): F20.9 - Schizophrenia, unspecified Plan Mrs. Thibodeaux is a 74 year-old woman with hx of schizophrenia. She also has hx of significant trauma. She was sect from her OP provider (unclear of psych or PCP) as pt reported AH of children, no SI/HI. In the ED concern in terms of her ability to care for herself, increase forgetfulness, pt was not aware what medications she is supposed to be taking and pharmacy confirmed she had not filled psychotropic medications since November 2023. Son had reported to ED concern in terms of ability to care for herself. This singer songwriter called son, Phani but unable to reach him. Will continue to attempt communication with son. Pending collateral information from OP provider as well. We discussed risks, benefits and alternative treatment options, will restart latuda 20mg po daily with dinner- will titrate as needed. Will complete memory/cognitive assessment. If head image not completed recently, will obtain head CT. Hospitalist did start amlodipine for elevated SBP. Will order iron studies, due to microcytic anemia. will do CMP as we do not have LFTs and BUN was elevated at 38. PLAN 07/17 continue tx. pending MOCA/ACL. increase latuda to 40mg po dinner. 07/19 continue tx. Family meeting with her son on 07/20/23. 07/20 continue tx. 07/21 continue tx. may increase latuda. 07/22 increase latuda 120mg po with dinner. 07/23/2024: Continue current regimen and plans 07/24/2024: Continue current regimen and plans 07/25 continue tx. ekg ordered as pt reports chest pain. she does have hx of angina per PCP documentation, but will check ekg. 07/26 continue tx. SBP 170's Reason for continued inpatient stay Substantial Risk for: inability to function Time Spent With Patient Time: Total time managing care of this patient today ____ minutes.
[2024-07-26] MEDS: Lurasidone HCl 40 MG TABLET 120 MG PO (16:50)
[2024-07-26 20:00] VITALS: BP 174/84; PULSE 84; RESP 16; TEMP 36.9; O2SAT 99
[2024-07-26 20:32] VITALS: BP 174/85; PULSE 84
[2024-07-26] MEDS: Pravastatin Sodium 20 MG TABLET PO (20:32)
[2024-07-26] MEDS: traZODone HCL 50 MG TABLET PO (20:32)
[2024-07-27] MEDS: Omeprazole 40 MG CAPSULE.DR PO (06:07)
[2024-07-27 07:55] VITALS: BP 181/79; PULSE 78; RESP 18; TEMP 36.7; O2SAT 98
[2024-07-27] MEDS: lisinopriL 10 MG TABLET PO (09:22)
[2024-07-27] MEDS: Metoprolol Tartrate 100 MG TABLET PO ×2 (09:22→20:45)
[2024-07-27] MEDS: amLODIPine Besylate 10 MG TABLET PO (09:22)
[2024-07-27] MEDS: Aspirin 81 MG TAB.CHEW PO (09:22)
[2024-07-27] MEDS: Isosorbide Mononitrate 60 MG TAB.ER.24H PO (09:22)
[2024-07-27] MEDS: Acetaminophen 325 MG TABLET 650 MG PO (09:27)
--- NOTE | 2024-07-27 10:11 | P.PNPSI_ITS ---
Subjective Subjective Date of Service: 07/27/24 Reason For Visit: F25.1 Schizoaffective Disorder, Depressive Type Subjective Notes: Conditional Voluntary Interim History: Pt slept through the night. She reports less voices, intermittent at times children. She reports doing well. She has been taking medications as prescribed. She is visible on the unit, and social with peers. She denies SI/HI. this scientific technical writer spoke with her son about supports she may need in the community including VNA but it is not covered by her insurance. Son is helping pt manage her fiances as she is falling behind payment despite having the income. This is due to her cognitive impairments. No behavioral concerns. Pt to discharged Thursday in evening and son will pick her up. Medication Compliance: Yes Side effects from medications: No Diagnostics Vital Signs (24Hr): Vital Signs - 24 hr 07/26/24 20:00 07/26/24 20:32 07/27/24 07:55 Temperature 98.4 F 98.1 F Pulse Rate 84 84 78 Respiratory Rate 16 18 Blood Pressure 174/84 H 174/85 H 181/79 H Pulse Oximetry 99 98 Oxygen Delivery Method Room Air Room Air BMI result Body Mass Index 26.8 Labs 07/14/24 17:29 Imaging Radiology Impressions: ITS Impressions Head CT 07/15/24 16:00 IMPRESSION: Small vessel occlusive disease. Superimposed acute stroke/nonhemorrhagic ischemia cannot be excluded. No acute intracranial hemorrhage. Electronically signed by: Rajesh Cheney MD 07/18/2024 07:16 AM [facility] [place] Medications Medications Current Medications Acetaminophen (Acetaminophen 325 Mg Tablet) 650 mg PO Q6H PRN PRN Reason: Headache/Pain Mild Scale (1-3) Last Admin: 07/27/24 09:27 Dose: 650 mg Al Hydroxide/Mg Hydroxide (Magnesium Hydrox/Alum Hydrox 30 Ml Oral.Susp) 30 ml PO Q6H PRN PRN Reason: Heartburn/Nausea Last Admin: 07/25/24 08:06 Dose: 30 ml Amlodipine Besylate (Amlodipine Besylate 10 Mg Tablet) 10 mg PO DAILY [facility]; Protocol Last Admin: 07/27/24 09:22 Dose: 10 mg Aspirin (Aspirin 81 Mg Tab.Chew) 81 mg PO DAILY [facility] Last Admin: 07/27/24 09:22 Dose: 81 mg Hydroxyzine HCl (Hydroxyzine Hcl 25 Mg Tablet) 25 mg PO Q6H PRN PRN Reason: Anxiety Isosorbide Mononitrate (Isosorbide Mononitrate 60 Mg Tab.Er.24h) 60 mg PO DAILY [facility]; Protocol Last Admin: 07/27/24 09:22 Dose: 60 mg Lisinopril (Lisinopril 10 Mg Tablet) 10 mg PO DAILY [facility]; Protocol Last Admin: 07/27/24 09:22 Dose: 10 mg Lurasidone HCl (Lurasidone Hcl 40 Mg Tablet) 120 mg PO DAILY@1700 [facility] Last Admin: 07/26/24 16:50 Dose: 120 mg Magnesium Hydroxide (Milk Of Magnesia 30 Ml Oral.Susp) 30 ml PO DAILY PRN PRN Reason: Constipation Metoprolol Tartrate (Metoprolol Tartrate 100 Mg Tablet) 100 mg PO BID [facility]; Protocol Last Admin: 07/27/24 09:22 Dose: 100 mg Omeprazole (Omeprazole 40 Mg Capsule.Dr) 40 mg PO DAILY@0630 [facility] Last Admin: 07/27/24 06:07 Dose: 40 mg Pravastatin Sodium (Pravastatin Sodium 20 Mg Tablet) 20 mg PO BEDTIME [facility] Last Admin: 07/26/24 20:32 Dose: 20 mg Trazodone HCl (Trazodone Hcl 50 Mg Tablet) 50 mg PO BEDTIME MRX1 PRN PRN Reason: Insomnia Last Admin: 07/26/24 20:32 Dose: 50 mg Allergies Allergies Allergy/AdvReac Type Severity Reaction Status Date / Time thao Allergy Intermediate Nausea Verified 07/13/24 22:22 fluphenazine Allergy Intermediate Unknown Verified 07/13/24 22:24 losartan Allergy Intermediate Cough Verified 07/13/24 22:25 ondansetron [From Zofran] Allergy Intermediate Unknown Verified 07/13/24 22:26 pear Allergy Intermediate Nausea Verified 07/13/24 22:22 spironolactone Allergy Intermediate Nausea Verified 07/13/24 22:25 apple Allergy Mild Nausea Verified 07/13/24 22:21 haloperidol AdvReac Intermediate Involuntary Verified 07/13/24 22:24 Spasms Assessment & Plan Assessment & Plan (1) Schizophrenia: Status: Acute Code(s): F20.9 - Schizophrenia, unspecified Plan Mrs. Thibodeaux is a 74 year-old woman with hx of schizophrenia. She also has hx of significant trauma. She was sect from her OP provider (unclear of psych or PCP) as pt reported AH of children, no SI/HI. In the ED concern in terms of her ability to care for herself, increase forgetfulness, pt was not aware what medications she is supposed to be taking and pharmacy confirmed she had not filled psychotropic medications since November 2023. Son had reported to ED concern in terms of ability to care for herself. This scientific technical writer called son, Phani but unable to reach him. Will continue to attempt communication with son. Pending collateral information from OP provider as well. We discussed risks, benefits and alternative treatment options, will restart latuda 20mg po daily with dinner- will titrate as needed. Will complete memory/cognitive assessment. If head image not completed recently, will obtain head CT. Hospitalist did start amlodipine for elevated SBP. Will order iron studies, due to microcytic anemia. will do CMP as we do not have LFTs and BUN was elevated at 38. PLAN 07/17 continue tx. pending MOCA/ACL. increase latuda to 40mg po dinner. 07/19 continue tx. Family meeting with her son on 07/20/23. 07/20 continue tx. 07/21 continue tx. may increase latuda. 07/22 increase latuda 120mg po with dinner. 07/23/2024: Continue current regimen and plans 07/24/2024: Continue current regimen and plans 07/25 continue tx. ekg ordered as pt reports chest pain. she does have hx of angina per PCP documentation, but will check ekg. 07/26 continue tx. SBP 170's 07/27 increase lisinopril 20mg po daily due to ongoing SBP elevation in 170's. continue all other medications. Reason for continued inpatient stay Substantial Risk for: inability to function Time Spent With Patient Time: Total time managing care of this patient today ____ minutes.
[2024-07-27] MEDS: Lurasidone HCl 40 MG TABLET 120 MG PO (16:20)
[2024-07-27 20:00] VITALS: BP 164/74; PULSE 78; RESP 16; TEMP 37.1; O2SAT 100
[2024-07-27] MEDS: traZODone HCL 50 MG TABLET PO (20:46)
[2024-07-27] MEDS: Pravastatin Sodium 20 MG TABLET PO (20:46)
[2024-07-28] MEDS: Omeprazole 40 MG CAPSULE.DR PO (06:00)
[2024-07-28 07:55] VITALS: BP 120/62; PULSE 68; RESP 18; TEMP 36.8; O2SAT 98
[2024-07-28] MEDS: Isosorbide Mononitrate 60 MG TAB.ER.24H PO (08:04)
[2024-07-28] MEDS: amLODIPine Besylate 10 MG TABLET PO (08:04)
[2024-07-28] MEDS: lisinopriL 20 MG TABLET PO (08:04)
[2024-07-28] MEDS: Aspirin 81 MG TAB.CHEW PO (08:05)
[2024-07-28] MEDS: Metoprolol Tartrate 100 MG TABLET PO ×2 (08:05→20:38)
--- NOTE | 2024-07-28 09:04 | P.PNPSI_ITS ---
Subjective Subjective Date of Service: 07/28/24 Reason For Visit: F25.1 Schizoaffective Disorder, Depressive Type Subjective Notes: Conditional Voluntary Interim History: Pt slept through the night. She reports feeling a little bit tired in the morning despite sleeping well. She reports no voices today but they come and go and it seems it is mostly sounds of children. She is less suspicious towards son and others, although does question his intentions and others. No behavioral concerns. Medication Compliance: Yes Side effects from medications: No Review of Systems Review of Systems Sleep Yes all other systems are reviewed and are negative Mental Status Exam Mental Status Exam Narrative: Appearance: wearing hospital gown, fair hygiene, in NAD Behavior: cooperative, interview limited by fact that she was somnolent and wanted to rest Psychomotor: no agitation or retardation noted Speech: clear, normal rate/rhythm/volume, spontaneous TP: linear TC: wanting to rest, open to tx. Mood: tired Affect: congruent SI: none HI: none VH/AH: intermittent auditory hallucinations of children, denies CAH Delusions: no overt delusional content noted or reported Insight/judgment: poor x 2. Memory/cog: alert, oriented to place, situation, month, year. ACL 4.2 MOCA Diagnostics Vital Signs (24Hr): Vital Signs - 24 hr 07/27/24 20:00 Temperature 98.8 F Pulse Rate 78 Respiratory Rate 16 Blood Pressure 164/74 H Pulse Oximetry 100 Oxygen Delivery Method Room Air BMI result Body Mass Index 26.8 Labs 07/14/24 17:29 Imaging Radiology Impressions: ITS Impressions Head CT 07/15/24 16:00 IMPRESSION: Small vessel occlusive disease. Superimposed acute stroke/nonhemorrhagic ischemia cannot be excluded. No acute intracranial hemorrhage. Electronically signed by: Rajesh Cheney MD 07/18/2024 07:[address] [facility] Medications Medications Current Medications Acetaminophen (Acetaminophen 325 Mg Tablet) 650 mg PO Q6H PRN PRN Reason: Headache/Pain Mild Scale (1-3) Last Admin: 07/27/24 09:27 Dose: 650 mg Al Hydroxide/Mg Hydroxide (Magnesium Hydrox/Alum Hydrox 30 Ml Oral.Susp) 30 ml PO Q6H PRN PRN Reason: Heartburn/Nausea Last Admin: 07/25/24 08:06 Dose: 30 ml Amlodipine Besylate (Amlodipine Besylate 10 Mg Tablet) 10 mg PO DAILY [facility]; Protocol Last Admin: 07/28/24 08:04 Dose: 10 mg Aspirin (Aspirin 81 Mg Tab.Chew) 81 mg PO DAILY [facility] Last Admin: 07/28/24 08:05 Dose: 81 mg Hydroxyzine HCl (Hydroxyzine Hcl 25 Mg Tablet) 25 mg PO Q6H PRN PRN Reason: Anxiety Isosorbide Mononitrate (Isosorbide Mononitrate 60 Mg Tab.Er.24h) 60 mg PO DAILY [facility]; Protocol Last Admin: 07/28/24 08:04 Dose: 60 mg Lisinopril (Lisinopril 20 Mg Tablet) 20 mg PO DAILY [facility]; Protocol Last Admin: 07/28/24 08:04 Dose: 20 mg Lurasidone HCl (Lurasidone Hcl 40 Mg Tablet) 120 mg PO DAILY@1700 [facility] Last Admin: 07/27/24 16:20 Dose: 120 mg Magnesium Hydroxide (Milk Of Magnesia 30 Ml Oral.Susp) 30 ml PO DAILY PRN PRN Reason: Constipation Metoprolol Tartrate (Metoprolol Tartrate 100 Mg Tablet) 100 mg PO BID [facility]; Protocol Last Admin: 07/28/24 08:05 Dose: 100 mg Omeprazole (Omeprazole 40 Mg Capsule.Dr) 40 mg PO DAILY@0630 [facility] Last Admin: 07/28/24 06:00 Dose: 40 mg Pravastatin Sodium (Pravastatin Sodium 20 Mg Tablet) 20 mg PO BEDTIME [facility] Last Admin: 07/27/24 20:46 Dose: 20 mg Trazodone HCl (Trazodone Hcl 50 Mg Tablet) 50 mg PO BEDTIME MRX1 PRN PRN Reason: Insomnia Last Admin: 07/27/24 20:46 Dose: 50 mg Allergies Allergies Allergy/AdvReac Type Severity Reaction Status Date / Time thao Allergy Intermediate Nausea Verified 07/13/24 22:22 fluphenazine Allergy Intermediate Unknown Verified 07/13/24 22:24 losartan Allergy Intermediate Cough Verified 07/13/24 22:25 ondansetron [From Zofran] Allergy Intermediate Unknown Verified 07/13/24 22:26 pear Allergy Intermediate Nausea Verified 07/13/24 22:22 spironolactone Allergy Intermediate Nausea Verified 07/13/24 22:25 apple Allergy Mild Nausea Verified 07/13/24 22:21 haloperidol AdvReac Intermediate Involuntary Verified 07/13/24 22:24 Spasms Assessment & Plan Assessment & Plan (1) Schizophrenia: Status: Acute Code(s): F20.9 - Schizophrenia, unspecified Plan Mrs. Thibodeaux is a 74 year-old woman with hx of schizophrenia. She also has hx of significant trauma. She was sect from her OP provider (unclear of psych or PCP) as pt reported AH of children, no SI/HI. In the ED concern in terms of her ability to care for herself, increase forgetfulness, pt was not aware what medications she is supposed to be taking and pharmacy confirmed she had not filled psychotropic medications since November 2023. Son had reported to ED concern in terms of ability to care for herself. This creative services writer called son, Phani but unable to reach him. Will continue to attempt communication with son. Pending collateral information from OP provider as well. We discussed risks, benefits and alternative treatment options, will restart latuda 20mg po daily with dinner- will titrate as needed. Will complete memory/cognitive assessment. If head image not completed recently, will obtain head CT. Hospitalist did start amlodipine for elevated SBP. Will order iron studies, due to microcytic anemia. will do CMP as we do not have LFTs and BUN was elevated at 38. PLAN 07/17 continue tx. pending MOCA/ACL. increase latuda to 40mg po dinner. 07/19 continue tx. Family meeting with her son on 07/20/23. 07/20 continue tx. 07/21 continue tx. may increase latuda. 07/22 increase latuda 120mg po with dinner. 07/23/2024: Continue current regimen and plans 07/24/2024: Continue current regimen and plans 07/25 continue tx. ekg ordered as pt reports chest pain. she does have hx of angina per PCP documentation, but will check ekg. 07/26 continue tx. SBP 170's 07/27 increase lisinopril 20mg po daily due to ongoing SBP elevation in 170's. continue all other medications. 07/28 SBP better this morning. continue tx. plan for DC on 07/29/24 Reason for continued inpatient stay Substantial Risk for: inability to function Time Spent With Patient Time: Total time managing care of this patient today ____ minutes.
[2024-07-28 14:51] VITALS: BMI 27.7
[2024-07-28] MEDS: Lurasidone HCl 40 MG TABLET 120 MG PO (17:16)
[2024-07-28 20:00] VITALS: BP 138/66; PULSE 79; RESP 16; TEMP 36.8; O2SAT 99
[2024-07-28] MEDS: Pravastatin Sodium 20 MG TABLET PO (20:38)
[2024-07-28] MEDS: traZODone HCL 50 MG TABLET PO (20:38)
[2024-07-29] MEDS: Omeprazole 40 MG CAPSULE.DR PO (06:22)
[2024-07-29 08:00] VITALS: BP 142/65; PULSE 63; RESP 18; TEMP 36.5; O2SAT 100
--- NOTE | 2024-07-29 09:41 | PM.PSYDC ---
DS: Providers Provider Date of Service: 07/29/24 Date of admission: 07/13/24 22:13 Date of discharge: 07/29/24 Primary care physician: Unknown Physician Consults: 07/13/24 22:56 Consult to Hospitalist Routine Comment: Consulting Provider: [facility] Hospitalists Reason For Exam: Transfer pt DS: Diagnosis Discharge Diagnosis (1) Schizophrenia: Status: Acute DS: Medications Discharge Medications Home Medications: Home Medications ?Medication ?Instructions ?Recorded ?Confirmed aspirin 81 mg tablet,delayed 81 mg DAILY 07/13/24 07/13/24 release bupropion HCl 300 mg 24 hr tablet, 300 mg PO DAILY 07/13/24 07/13/24 extended release isosorbide mononitrate 60 mg 60 mg PO DAILY 07/13/24 07/13/24 tablet,extended release 24 hr metoprolol tartrate 100 mg tablet 100 mg BID 07/13/24 07/13/24 omeprazole 40 mg capsule,delayed 40 mg PO DAILY 07/13/24 07/13/24 release pravastatin 20 mg tablet 20 mg PO BEDTIME 07/13/24 07/13/24 Mental Status Exam Mental Status Exam Narrative: Appearance: wearing hospital gown, fair hygiene, in NAD Behavior: cooperative, interview limited by fact that she was somnolent and wanted to rest Psychomotor: no agitation or retardation noted Speech: clear, normal rate/rhythm/volume, spontaneous TP: linear TC: wanting to rest, open to tx. Mood: better Affect: congruent SI: none HI: none VH/AH: intermittent auditory hallucinations of children, denies CAH Delusions: no overt delusional content noted or reported Insight/judgment: poor x 2. Memory/cog: alert, oriented to place, situation, month, year. ACL 4.2 MOCA 30 moderate cognitive impairment. Data Imaging Diagnostic Imaging Impressions Head CT 07/15/24 16:00 IMPRESSION: Small vessel occlusive disease. Superimposed acute stroke/nonhemorrhagic ischemia cannot be excluded. No acute intracranial hemorrhage. Electronically signed by: Rajesh Cheney MD 07/18/2024 07:16 AM [facility] DS: Summary Hospital Course Hospital Course: Mrs. Thibodeaux is a 74 year-old woman who was transported from provider office on sect 12 to reporting hearing voices of children. She denied SI/HI. Per ED assessment, pt was not sure what medications she was taking. She had not filled psychotropic medications since November of 2023. Her son had reported concern in terms of her memory and ability to care for herself. Pertinent labs include cbc with normocytic anemia. Basic metabolic panel showed elevated BUN 38, Cr 0.38. No labs on LFTs. EKG showed sinus rhythm with PACs, Qtc 438, infarct undertermine age. UA was negative- no signs of UTI. Of note, systolic blood pressure elevated 170's-180's. On the unit, pt presents as cooperative. She reports feeling tired and had just met with SW and wanted to rest. She reports she went to her provider and reports she was hearing voices of children. She reports some of these voices were voices of children and other people se grew up with. She had some insight that these were voices others couldn't hear. She is not sure who her psychiatrist is. She is not sure what medications she was taking nor has taken nor whether they have been helpful or not. She denied SI/HI. She reports some forgetfulness. She reports fair sleep. No changes in appetite. She denies any physical concerns. HOSPITAL COURSE On the unit, pt was admitted on a CV and placed on 15 minutes checks. Pt reported hearing voices of children at times. Her reports were vague and inconsistent. She had some degree of suspiciousness towards family, specially her son who is only support she has. She was noted to be forgetful and not being able to tell what medications she usually takes and for what. Her SBP was elevated and difficult initially to control. She was seen by hospitalist who added amlodipine 10mg po daily and eventually lisinopril which was titrated to 20mg po daily. In terms of psychotropic medications, Latuda was restarted and titrated to 120mg po daily with dinner. It appears she had EPS with higher potency antipsychotics. Wellbutrin was discontinued as it will worse psychosis and delusions. She was sleeping well. She did take naps during the day, despite not being on sedating medications. Cognitive and memory assessment were completed. She scored MOCA 13/22 showing moderate cognitive impairment and ACL 4.2 also showing moderate memory impairments. We discussed with her son Phani, that Mrs. Thibodeaux needs assistance managing medications and also finances as she is behind bills despite having enough income to cover them. Son reported that throughout her life, pt was been very paranoid and suspicious of her family including children and Phani is the only support she currently has. She did appear less paranoid as hospital stay went by and antipsychotic was increased in dose. She allowed son to go to her house and help her with some bills. Status at Discharge Cognitive/behavioral status at discharge: Pt with brigther affect. Less VH/AH. less paranoid. No aggression towards self or other. No SI/HI. Sleeping well. Functional status at discharge: independent ambulation Overall status at discharge: patient is progressing back to baseline Time Spent with Patient Time attestation: Total time managing care of this patient today __35__ minutes. Time spent: Greater than 30 minutes Discharge Plan Discharge Anticipated Discharge Date/Time: 07/29/24 09:41 Patient Disposition: Home, Self-Care Discharge Diagnosis: Schizophrenia Vascular Dementia Referrals: Swetha Hardy ([facility]) [Other] - 08/01/24 2:00 pm (You will see Swetha via telehealth (over the phone) on 08/01/24 at 2:00pm. She will call you for the appointment, if you'd like the appointment to be in person please call the number provided. According to the medical office secretary she is only available in person on thursday. if you'd like to change or cancel your appointment please call them at the number listed.) [facility] [Other] - 1 Week ([facility] will come to evaluate your needs 5-7 days after you get home. They have your sons number and your number to contact you. I've recommended that they come in for medication management, money management and light chores. Please be open to this and reach out to them if needed.) Gail Delatorre MD - Primary Care [Other] - 08/03/24 2:15 pm (You will see in office on 07/24 at 2:15pm. If you need to cancel or reschedule the appointment please call the number listed.) Discharge Medications: New metoprolol tartrate 100 mg Tablet 100 mg PO BID Qty: 60 0RF Protocol: Hold for SBP/HR < HOLD for SBP < : 90 HOLD for HR < : 60 lisinopril 20 mg Tablet 20 mg PO DAILY Qty: 30 0RF Protocol: Hold for SBP< HOLD for SBP < : 90 isosorbide mononitrate 60 mg Tablet Extended Release 24 Hr 60 mg PO DAILY Qty: 60 0RF Protocol: Hold for SBP< HOLD for SBP < : 90 amlodipine 10 mg Tablet 10 mg PO DAILY Qty: 30 0RF Protocol: Hold for SBP< HOLD for SBP < : 90 aspirin 81 mg Tablet,Chewable 81 mg PO DAILY Qty: 30 0RF pravastatin 20 mg Tablet 20 mg PO BEDTIME Qty: 30 0RF lurasidone 120 mg tablet 120 mg PO DAILY Qty: 30 1RF Rx Instructions: must administer with food (at least 350 calories) trazodone 50 mg Tablet 50 mg PO BEDTIME PRN (Reason: Insomnia) Qty: 30 0RF omeprazole 40 mg Capsule,Delayed Release(Dr/Ec) 40 mg PO DAILY@0630 Qty: 30 0RF Continued metoprolol tartrate 100 mg tablet 100 mg BID aspirin 81 mg tablet,delayed release (DR/EC) 81 mg DAILY isosorbide mononitrate 60 mg tablet extended release 24 hr 60 mg PO DAILY pravastatin 20 mg tablet 20 mg PO BEDTIME omeprazole 40 mg capsule,delayed release(DR/EC) 40 mg PO DAILY Discontinued bupropion HCl 300 mg tablet extended release 24 hr 300 mg PO DAILY Discharge Orders: Discharge Order (Routine); Ordered 07/29/24 Ordered By: Adela Salgado Diet: Regular diet Activity on Discharge: As tolerated Stand Alone Forms: Patient Portal Discharge page Print Language: Bahamian Care Plan Goals: 1. Maintain mood 2. No SI/HI 3. Less VH/AH 4. Less suspiciousness Health Concerns: Follow up with PCP for routine care- HTN Plan of Treatment: 1. Take medications as prescribed 2. Go to nearest ED or call 911 in event of emergency Assessment: Pt with brighter affect. Less VH/AH. Less paranoid delusions but residual symptoms present. Sleeping and eating well. No aggression towards self or others.
[2024-07-29 12:00] VITALS: BP 170/73; PULSE 69; RESP 18
[2024-07-29] MEDS: Aspirin 81 MG TAB.CHEW PO (12:02)
[2024-07-29] MEDS: Metoprolol Tartrate 100 MG TABLET PO (12:02)
[2024-07-29] MEDS: amLODIPine Besylate 10 MG TABLET PO (12:03)
[2024-07-29] MEDS: lisinopriL 20 MG TABLET PO (12:03)
[2024-07-29] MEDS: Isosorbide Mononitrate 60 MG TAB.ER.24H PO (12:03)
== END 2024-07-29 16:15 | disposition home or self-care (01) | DRG 885 ==
PROVIDERS: Clinical Nurse Specialist Psychiatric/Mental Health, Adult; Social Worker; Admitting Provider Psychiatry & Neurology Psychiatry; Visit Provider Psychiatry & Neurology Psychiatry
DX: F20.9 Schizophrenia, unspecified (principal); I25.10 Atherosclerotic heart disease of native coronary artery without angina pectoris; F01.50 Vascular dementia, unspecified severity, without behavioral disturbance, psychotic disturbance, mood disturbance, and anxiety; E78.5 Hyperlipidemia, unspecified; K21.9 Gastro-esophageal reflux disease without esophagitis; Z79.82 Long term (current) use of aspirin; Z79.899 Other long term (current) drug therapy
CPT/HCPCS: 36415; 70450; 80053; 80061; 82607; 82746; 82947; 83036; 83540; 83735; 84439; 84443; 93005

== ENCOUNTER 2024-07-13 22:13 | Outpatient (BNV) | payer MEDICARE, BC, OTHER, SELFPAY | END 2024-07-25 15:20 | PROVIDERS: Admitting Provider Psychiatry & Neurology Psychiatry; Visit Provider Internal Medicine Cardiovascular Disease | DX: R07.9 Chest pain, unspecified (principal); R94.31 Abnormal electrocardiogram [ECG] [EKG] | CPT/HCPCS: 93010 ==

== ENCOUNTER → 2024-07-13 22:13 | Outpatient (BNV) | payer MEDICARE, BC, OTHER, SELFPAY | PROVIDERS: Admitting Provider Psychiatry & Neurology Psychiatry; Visit Provider Student in an Organized Health Care Education/Training Program | DX: Z02.2 Encounter for examination for admission to residential institution (principal) | CPT/HCPCS: 99429 ==

== ENCOUNTER → 2024-07-13 22:13 | Outpatient (BNV) | payer MEDICARE, BC, OTHER, SELFPAY | PROVIDERS: Admitting Provider Psychiatry & Neurology Psychiatry; Visit Provider Social Worker | DX: F20.9 Schizophrenia, unspecified (principal) | CPT/HCPCS: 90792 ==